=== PATIENT | female | born 1975 | race Caucasian/White ===

== ENCOUNTER 2021-03-12 20:01 | Emergency (ER) | payer MEDICARE, MEDICAID, SELFPAY ==
[2021-03-12 20:15] VITALS: BP 169/97; PULSE 95; RESP 18; TEMP 36.3; O2SAT 98; BMI 67.8
--- NOTE | 2021-03-12 20:48 | ECG_ITS ---
[facility] Test Date: 2021-03-12 Pat Name: Shelli Tadeo Department: Room: Gender: Female Coordinator Of Genetic Services: : 1975 Requested By: Lilia Pantoja Order Number: [id number] Heather MD: Mohinder Flores M.D. Measurements Intervals [place] Rate: 89 P: 48 FL: 151 QRS: 34 QRSD: 89 T: 30 QT: 362 QTc: 442 Interpretive Statements SINUS RHYTHM POSSIBLE LEFT ATRIAL ENLARGEMENT [-0.1mV P WAVE IN V1/V2] No previous ECG available for comparison Electronically Signed On 03-13-2021 10:11:05 CDT by Mohinder Flores M.D. [id number]
--- NOTE | 2021-03-12 20:48 | CTR_ITS ---
PROCEDURE INFORMATION: Exam: CTA Chest With Contrast Exam date and time: 03/12/2021 8:57 PM Age: 45 years old Clinical indication: Bloating; Shortness of breath; Prior surgery; Surgery type: Part neph lt, gb, ; Patient HX: C/O sjorgens flare and abd swelling and SOB; Additional info: Dyspnea TECHNIQUE: Imaging protocol: Computed tomographic angiography of the chest with contrast. 3D rendering (Not supervised by radiologist): MIP and/or 3D reconstructed images were created by the technologist. Radiation optimization: All CT scans at this facility use at least one of these dose optimization techniques: automated exposure control; mA and/or kV adjustment per patient size (includes targeted exams where dose is matched to clinical indication); or iterative reconstruction. Contrast material: OMNI 350; Contrast volume: 160 ml; Contrast route: INTRAVENOUS (IV); COMPARISON: No relevant prior studies available. RADIATION DOSE METRICS: Total DLP (mGy-cm): 3570.07 FINDINGS: Pulmonary arteries: No pulmonary embolus or aortic dissection. Aorta: Unremarkable. No aortic aneurysm. No aortic dissection. Lungs: Unremarkable. No consolidation. No masses. Pleural spaces: Unremarkable. No pneumothorax. No pleural effusion. Heart: Unremarkable. No cardiomegaly. No pericardial effusion. Lymph nodes: Unremarkable. No enlarged lymph nodes. Bones/joints: Unremarkable. No acute fracture. Soft tissues: Unremarkable. IMPRESSION: No pulmonary embolus or aortic dissection. PROCEDURE INFORMATION: Exam: CT Abdomen And Pelvis With Contrast Exam date and time: 03/12/2021 8:57 PM Age: 45 years old Clinical indication: Bloating; Shortness of breath; Prior surgery; Surgery type: Part neph lt, gb, ; Patient HX: C/O sjorgens flare and abd swelling and SOB; Additional info: Dyspnea TECHNIQUE: Imaging protocol: Computed tomography of the abdomen and pelvis with contrast. Radiation optimization: All CT scans at this facility use at least one of these dose optimization techniques: automated exposure control; mA and/or kV adjustment per patient size (includes targeted exams where dose is matched to clinical indication); or iterative reconstruction. Contrast material: OMNI 350; Contrast volume: 160 ml; Contrast route: INTRAVENOUS (IV); COMPARISON: No relevant prior studies available. RADIATION DOSE METRICS: Total DLP (mGy-cm): 3570.07 FINDINGS: Liver: Normal. No mass. Gallbladder and bile ducts: Surgical clips in the gallbladder fossa consistent with cholecystectomy. Pancreas: Normal. No ductal dilation. Spleen: Normal. No splenomegaly. Adrenal glands: Normal. No mass. Kidneys and ureters: Severe right renal atrophy. Stomach and bowel: Periampullary duodenal diverticulum. Appendix: No evidence of appendicitis. Intraperitoneal space: Unremarkable. No free air. No significant fluid collection. Vasculature: Unremarkable. No abdominal aortic aneurysm. Lymph nodes: Unremarkable. No enlarged lymph nodes. Urinary bladder: Unremarkable as visualized. Reproductive: IUD within the uterus. Bones/joints: Unremarkable. No acute fracture. Soft tissues: Possible morbid obesity. CT/CT angio chest w abd pel w con IMPRESSION: No aortic aneurysm or aortic dissection. Radiation Dose CTDIVOL = (mGy): DLP = 3570.07~3570.07 (mGy-cm)
--- NOTE | 2021-03-12 20:52 | W.ED.GENADLT ---
HPI - General Adult General: Chief complaint: General Medical Stated complaint: DIFF BREATHING, RASH ON L ARM, POSS HERNIA PROB Time Seen by Provider: 03/12/21 20:43 Source: patient Mode of arrival: ambulatory Limitations: no limitations History of Present Illness: HPI narrative: 45-year-old female who who has a history of Sjogren's along with a possible mass in her abdomen. States she moved here during Covid last year and has not had any follow-up in over a year. She states that they were working up the mass her abdomen and she is unsure what it was before she had moved. She states she is getting concerned she has been having increasing shortness of breath over the last week. She states that with any activity she becomes short of breath. She denies any pain. 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 Associated symptoms: Reports dyspnea; Deny chest pain, headache(s), nausea, rash or vomiting Review of Systems Const: Denies: fever(s), chills, body aches or change in appetite Eyes: Denies: blurry vision or eye discomfort ENMT: Denies: throat pain or dental pain Card: Denies: chest pain Resp: Reports: dyspnea GI: Denies: abdominal pain, nausea, vomiting or diarrhea : Denies: dysuria Musc: Denies: neck pain or back pain Skin/Breast: Denies: rash Neuro: Denies: headache(s) Psych: Denies: depression Bar/Lymph: Denies: easy bruising All/Imm: Denies: urticaria Physical Exam Const: COMMON NORMALS: no acute distress, patient oriented x3 and healthy appearing HENMT: COMMON NORMALS: normocephalic and atraumatic HEAD & SCALP: normocephalic and atraumatic Eye: COMMON NORMALS: Equal, round and reactive pupils present and EOMs intact bilaterally PUPIL: Yes Equal, round and reactive pupils present Neck/C-Spine: COMMON NORMALS: full ROM and supple Chest: COMMONS NORMALS: normal inspection of the chest and normal palpation of entire chest wall Resp: COMMON NORMALS: normal respiratory effort, No retractions, No use of accessory muscles and clear to auscultation bilaterally AUSCULTATION: clear to auscultation bilaterally Cardio: COMMON NORMALS: regular rate, regular rhythm and No murmurs present (Cardio) RATE: regular rate RHYTHM: regular rhythm GI: COMMON NORMALS: Normal to inspection, nondistended, normoactive bowel sounds present, Soft to palpation, non-tender and no masses PALPATION: Yes Soft to palpation Extremity: COMMON NORMALS: normal to inspection and full ROM Neuro: COMMON NORMALS: patient oriented x3, moves all extremities and no focal motor deficits Psych: COMMON NORMALS: mental status grossly normal, Normal thought process present and cooperative THOUGHT PROCESS: Normal thought process present Skin: COMMON NORMALS: no wounds NARRATIVE SKIN EXAM: rash noted to left arm Course Vital Signs: Vital signs: Vital Signs Temperature 97.3 F L 03/12/21 20:15 Pulse Rate 95 03/12/21 21:16 Respiratory Rate 17 03/12/21 21:16 Blood Pressure 175/104 03/12/21 21:16 Pulse Oximetry 92 03/12/21 21:16 MDM - General Adult MDM Narrative: Medical decision making narrative: Patient presents with a rash on her arm and will start on prednisone. CT of her chest abdomen pelvis is normal no signs of pulmonary embolism. Patient has no signs of acute coronary syndrome or pneumonia causing her dyspnea. She is to follow-up with her PCP and return if worsening. She understands agrees to plan. Lab Data: Labs: Lab Results 03/12/21 03/12/21 03/12/21 Range/Units 21:13 21:13 21:13 WBC 10.4 H (4.0-10.0) 10^3/ uL RBC 4.65 (4.1-5.3) 10^6/u L Hgb 14.1 (11.5-15.3) g/dL Hct 43.7 (37.0-47.0) % MCV 94.0 (81-99) fL MCH 30.3 (28.0-34.0) pg MCHC 32.3 (30.0-36.0) g/dL RDW 13.5 (12.1-15.1) % Plt Count 255 (130-400) 10^3/c mm MPV 11.8 H (7.4-10.4) fL Neut % (Auto) 68.6 % Lymph % (Auto) 23.5 % [place] % (Auto) 5.5 % Eos % (Auto) 1.8 % Baso % (Auto) 0.4 % Neut # (Auto) 7.13 (1.8-7.7) 10^3/u L Lymph # (Auto) 2.4 (0.8-4.8) 10^3/u L [place] # (Auto) 0.6 (0.2-0.9) 10^3/u L Eos # (Auto) 0.2 (0.0-0.8) 10^3/u L Baso # (Auto) 0.0 (0.0-0.1) 10^3/u L Nucleated RBC % (a uto) 0 % Nucleated RBCs # 0.0 /100WBC Sodium 140 (136-145) mmol/L Potassium 4.2 (3.5-5.1) mmol/L Chloride 105 (98-107) mmol/L Carbon Dioxide 24 (22-29) mmol/L Anion Gap 15.2 (5-19) BUN 12 (6-20) mg/dL Creatinine 0.8 (0.5-0.9) mg/dL GFR Calculation 77.9 L (90-130) mL/min Glucose 97 (65-115) mg/dL Calculated Osmolal ity 290 (285-295) mOsm/k g Calcium 8.8 (8.5-10.5) mg/dL Total Bilirubin 0.2 (0.15-1.2) mg/dL AST 13 (0-32) U/L ALT 26 (0-33) U/L Alkaline Phosphata se 97 (35-105) IU/L Troponin T Baselin e 6 (0-10) ng/L Total Protein 6.4 L (6.6-8.7) g/dL Albumin 4.4 (3.5-5.2) g/dL Globulin 2.0 (1.3-4.6) g/dL Imaging Data^: CT Chest: Attestation: I personally reviewed and interpreted this imaging study as follows: Radiologist's impression: [address] [address] [address] Scan Report Signed Patient: Shelli Tadeo Unit #: [id number] : 1975 Age/Sex: 45 / F ADM Date: 03/12/21 Loc: ER Room/Bed: Attending Dr: Ordering Provider/Ordering MD: Lilia Pantoja MD Date of Service: 03/12/21 Procedure(s): CT angio chest w abd pel w con Accession Number(s): [id number] Report Number: [id number] PROCEDURE INFORMATION: Exam: CTA Chest With Contrast Exam date and time: 03/12/2021 8:57 PM Age: 45 years old Clinical indication: Bloating; Shortness of breath; Prior surgery; Surgery type: Part neph lt, gb, ; Patient HX: C/O sjorgens flare and abd swelling and SOB; Additional info: Dyspnea TECHNIQUE: Imaging protocol: Computed tomographic angiography of the chest with contrast. 3D rendering (Not supervised by radiologist): MIP and/or 3D reconstructed images were created by the technologist. Radiation optimization: All CT scans at this facility use at least one of these dose optimization techniques: automated exposure control; mA and/or kV adjustment per patient size (includes targeted exams where dose is matched to clinical indication); or iterative reconstruction. Contrast material: OMNI 350; Contrast volume: 160 ml; Contrast route: INTRAVENOUS (IV); COMPARISON: No relevant prior studies available. RADIATION DOSE METRICS: Total DLP (mGy-cm): 3570.07 FINDINGS: Pulmonary arteries: No pulmonary embolus or aortic dissection. Aorta: Unremarkable. No aortic aneurysm. No aortic dissection. Lungs: Unremarkable. No consolidation. No masses. Pleural spaces: Unremarkable. No pneumothorax. No pleural effusion. Heart: Unremarkable. No cardiomegaly. No pericardial effusion. Lymph nodes: Unremarkable. No enlarged lymph nodes. Bones/joints: Unremarkable. No acute fracture. Soft tissues: Unremarkable. IMPRESSION: No pulmonary embolus or aortic dissection. PROCEDURE INFORMATION: Exam: CT Abdomen And Pelvis With Contrast Exam date and time: 03/12/2021 8:57 PM Age: 45 years old Clinical indication: Bloating; Shortness of breath; Prior surgery; Surgery type: Part neph lt, gb, ; Patient HX: C/O sjorgens flare and abd swelling and SOB; Additional info: Dyspnea TECHNIQUE: Imaging protocol: Computed tomography of the abdomen and pelvis with contrast. Radiation optimization: All CT scans at this facility use at least one of these dose optimization techniques: automated exposure control; mA and/or kV adjustment per patient size (includes targeted exams where dose is matched to clinical indication); or iterative reconstruction. Contrast material: OMNI 350; Contrast volume: 160 ml; Contrast route: INTRAVENOUS (IV); COMPARISON: No relevant prior studies available. RADIATION DOSE METRICS: Total DLP (mGy-cm): 3570.07 FINDINGS: Liver: Normal. No mass. Gallbladder and bile ducts: Surgical clips in the gallbladder fossa consistent with cholecystectomy. Pancreas: Normal. No ductal dilation. Spleen: Normal. No splenomegaly. Adrenal glands: Normal. No mass. Kidneys and ureters: Severe right renal atrophy. Stomach and bowel: Periampullary duodenal diverticulum. Appendix: No evidence of appendicitis. Intraperitoneal space: Unremarkable. No free air. No significant fluid collection. Vasculature: Unremarkable. No abdominal aortic aneurysm. Lymph nodes: Unremarkable. No enlarged lymph nodes. Urinary bladder: Unremarkable as visualized. Reproductive: IUD within the uterus. Bones/joints: Unremarkable. No acute fracture. Soft tissues: Possible morbid obesity. CT/CT angio chest w abd pel w con IMPRESSION: No aortic aneurysm or aortic dissection. Radiation Dose CTDIVOL = (mGy): DLP = 3570.07 3570.07 (mGy-cm) EKG Data^: EKG 1: Attestation: I personally reviewed and interpreted this EKG as follows: EKG interpretation date: 03/12/21 EKG interpretation time: 20:57 Interpretation: nsr hr [address] or twave abnormalities qrs 89 qtc 409 Computer generated interpretation: Chest/Abdomen/Pelvis CT 03/12/21 20:48 IMPRESSION: No aortic aneurysm or aortic dissection. Radiation Dose CTDIVOL = (mGy): DLP = 3570.07~3570.07 (mGy-cm) Discharge Plan Discharge Patient Disposition: Home Clinical Impression: Rash, Dyspnea Condition: Stable Prescriptions: New prednisone 50 mg tablet 50 mg PO DAILY Qty: 5 RF: 0 No Action Tylenol 325 mg Tablet 325 - 650 mg PO Q4H PRN (Reason: Pain) RF: 0 hydroxyzine HCl 25 mg Tablet 25 mg PO BID PRN (Reason: Anxiety) RF: 0 Fish Oil 1 tab PO DAILY RF: 0 elderberry fruit-honey 1 tab PO DAILY RF: 0 naproxen 1 - 2 tab PO Q4H PRN (Reason: Pain) RF: 0 Discharge Orders: Discharge ED (Routine); Ordered 03/12/21 Ordered By: Lilia Pantoja Discharge Diet: Advance as tolerated Discharge Activity: Resume usual activity Patient Instructions: Acute Rash (ED), Dyspnea (ED) Coding Level of Care Code ED Sonar Watchstander for Vernell Fwd Exam Comprehensive
[2021-03-12 21:16] VITALS: BP 175/104; PULSE 95; RESP 17; O2SAT 92
[2021-03-12 21:18] LABS: Basophils % 0.4 %; Eosinophils # 0.2 10^3/uL (0.0-0.8); Eosinophils % 1.8 %; Hematocrit 43.7 % (37.0-47.0); Hemoglobin 14.1 g/dL (11.5-15.3); Lymphocytes # 2.4 10^3/uL (0.8-4.8); Lymphocytes % 23.5 %; Mean Corpuscular HGB Conc 32.3 g/dL (30.0-36.0); Mean Corpuscular Hemoglobin 30.3 pg (28.0-34.0); Mean Platelet Volume 11.8 fL (7.4-10.4); Monocytes # 0.6 10^3/uL (0.2-0.9); Monocytes % 5.5 %; Neutrophils # 7.13 10^3/uL (1.8-7.7); Neutrophils % 68.6 %; Nucleated Red Blood Cells % 0 %; Platelet Count 255 10^3/cmm (130-400); Red Blood Count 4.65 10^6/uL (4.1-5.3); Red Cell Distribution Width 13.5 % (12.1-15.1); White Blood Count 10.4 10^3/uL (4.0-10.0)
[2021-03-12] MEDS: iohexol 350 mg/mL 100 mL Btl IV ×2 (21:21→21:29)
[2021-03-12 21:35] LABS: Troponin(5th) Baseline 6 ng/L (0-10)
[2021-03-12 21:36] LABS: Alanine Aminotransferase 26 U/L (0-33); Albumin Level 4.4 g/dL (3.5-5.2); Alkaline Phosphatase 97 IU/L (35-105); Anion Gap 15.2 (5-19); Aspartate Amino Transferase 13 U/L (0-32); Blood Urea Nitrogen 12 mg/dL (6-20); Calcium 8.8 mg/dL (8.5-10.5); Carbon Dioxide 24 mmol/L (22-29); Chloride 105 mmol/L (98-107); Glomerular Filtration Rate 77.9 mL/min (90-130); Glucose 97 mg/dL (65-115); Osmolality Calculated 290 mOsm/kg (285-295); Potassium 4.2 mmol/L (3.5-5.1); Sodium 140 mmol/L (136-145); Total Bilirubin 0.2 mg/dL (0.15-1.2); Total Protein 6.4 g/dL (6.6-8.7)
[2021-03-12 22:55] VITALS: BP 153/110; PULSE 92; RESP 16; TEMP 36.6; O2SAT 97
== END 2021-03-12 22:55 | disposition home or self-care (01) ==
PROVIDERS: Emergency Provider Emergency Medicine
DX: R21 Rash and other nonspecific skin eruption (principal); R06.00 Dyspnea, unspecified
CPT/HCPCS: 71275; 74177; 80053; 84484; 85025; 93005; 96374; 99284; J2930; Q9967

== ENCOUNTER 2021-04-28 09:15 | Outpatient (CLI) | payer MEDICARE, MEDICAID, SELFPAY ==
--- NOTE | 2021-04-28 09:24 | XRR_ITS ---
PROCEDURE INFORMATION: Exam: XR Lumbosacral Spine Exam date and time: 04/28/2021 9:24 AM Age: 45 years old Clinical indication: Low back pain; Additional info: Low back pain/peripheral neuropathy TECHNIQUE: Imaging protocol: XR of the lumbosacral spine. Views: 4 or 5 views. COMPARISON: CT angio chest w abd pel w con 03/12/2021 9:20 PM FINDINGS: Bones/joints: The vertebral body heights are preserved. Normal alignment. Mild facet arthropathy at the lower lumbar spine. Mild disc space narrowing at L5-S1, the rest of the intervertebral disc heights are maintained. Soft tissues: Surgical clips noted within the abdomen. XR/XR lumbar spine min 4V 67695 IMPRESSION: 1. No acute osseous findings of the lumbar spine. 2. Mild degenerative changes of the lower lumbar spine as described in the body of the report.
--- NOTE | 2021-04-28 09:24 | XRR_ITS ---
PROCEDURE INFORMATION: Exam: XR Right Knee Exam date and time: 04/28/2021 9:24 AM Age: 45 years old Clinical indication: Pain; Knee; Right; Additional info: Pain in R knee TECHNIQUE: Imaging protocol: XR Right knee. Views: 1 or 2 views. COMPARISON: No relevant prior studies available. FINDINGS: Bones/joints: Mild tricompartmental joint space narrowing with marginal osteophyte formation. Negative for fracture. Soft tissues: Normal. 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
== END 2021-04-28 09:16 ==
PROVIDERS: PCP Nurse Practitioner Family; Visit Provider Nurse Practitioner Family
DX: M48.062 Spinal stenosis, lumbar region with neurogenic claudication (principal); M54.16 Radiculopathy, lumbar region; M54.9 Dorsalgia, unspecified; M25.561 Pain in right knee; M25.562 Pain in left knee; F17.210 Nicotine dependence, cigarettes, uncomplicated
CPT/HCPCS: 72110; 73560; 99204

== ENCOUNTER 2021-05-22 15:10 | Outpatient (CLI) | payer MEDICARE, MEDICAID, SELFPAY ==
--- NOTE | 2021-05-22 15:30 | CT_ITS ---
WS: [id number] CT LUMBAR SPINE, noncontrast. HISTORY: M54.16 - Radiculopathy, lumbar region TECHNIQUE: Contiguous 2.5 mm axial imaging are performed. Sagittal and coronal reformats are submitte d and reviewed. All CT scans at [facility] use at least one of these dose optimization te chniques: automated exposure control; mA and/or kV adjustment per patient size (includes targeted exa ms where dose is matched to clinical indication); or iterative reconstruction. IV contrast: None DLP: 2406.92 mGy.cm COMPARISON: None available. Posterior lumbar alignment is normal. No fractures. Vacuum disc phenomenon at L5-S1. Very minimal evangelist rowing of the L5-S1 disc. No pars defects. L1-2: Normal. L2-3: Normal. L3-4: Very slight annular disc bulging. Tiny LEFT foraminal disc protrusion without contact on the ne rve root. L4-5: Mild widening of the facet joints bilaterally with air in the facet joints. There is very sligh t annular disc bulging and ligamentum flavum hypertrophy. Mild narrowing of the central canal and for amen. There is slight increased amount of epidural fat. L5-S1: Mild widening of the facet joints with air in the facet joints. Mild RIGHT and moderate LEFT f oraminal stenosis. Status post RIGHT nephrectomy. Degenerative air in the SI joints bilaterally. Very slight increased sclerosis along the RIGHT sacral side of the RIGHT SI joint. CT/CT lumbar spine wo con* [id number] IMPRESSION: 1. Very mild central and bilateral foraminal stenosis at L4-5. In part due to mild disc disease, facet disease and increased epidural fat. 2. Moderate LEFT and mild RIGHT foraminal stenosis at L5-S1. 3. Tiny LEFT foraminal disc protrusion at L3-4 without contact on the nerve ro ot. 4. Mild widening with increased degenerative air in the facet joints of L4-5 a nd L5-S1, bilateral. 5. Bilateral SI joint degeneration. 6. Prior RIGHT nephrectomy.
== END 2021-05-22 15:11 | disposition home or self-care (01) ==
LOC: RAD 15:15
PROVIDERS: PCP Nurse Practitioner Family; Visit Provider Anesthesiology Pain Medicine
DX: M54.16 Radiculopathy, lumbar region (principal); M48.062 Spinal stenosis, lumbar region with neurogenic claudication; Z90.5 Acquired absence of kidney; M51.26 Other intervertebral disc displacement, lumbar region; M48.07 Spinal stenosis, lumbosacral region; M48.061 Spinal stenosis, lumbar region without neurogenic claudication
CPT/HCPCS: 72131

== ENCOUNTER → 2021-06-02 09:51 | Outpatient (BNVA) | payer MEDICARE, MEDICAID, SELFPAY | PROVIDERS: PCP Nurse Practitioner Family; Visit Provider Anesthesiology Pain Medicine | DX: M54.16 Radiculopathy, lumbar region (principal); M79.604 Pain in right leg; M79.605 Pain in left leg; M47.816 Spondylosis without myelopathy or radiculopathy, lumbar region; M48.07 Spinal stenosis, lumbosacral region; M19.90 Unspecified osteoarthritis, unspecified site; Z79.899 Other long term (current) drug therapy; M79.7 Fibromyalgia; Z11.59 Encounter for screening for other viral diseases; Z11.1 Encounter for screening for respiratory tuberculosis; E66.01 Morbid (severe) obesity due to excess calories; Z68.45 Body mass index [BMI] 70 or greater, adult | CPT/HCPCS: 99204; 99214 ==

== ENCOUNTER 2021-06-10 12:00 | Outpatient (CLI) | payer MEDICARE, MEDICAID, SELFPAY | END 2021-06-10 12:01 | disposition home or self-care (01) | LOC: SLEEP 06-11 09:34 | PROVIDERS: PCP Nurse Practitioner Family; Visit Provider Nurse Practitioner Family | DX: G47.10 Hypersomnia, unspecified (principal) | CPT/HCPCS: G0399 ==

== ENCOUNTER → 2021-06-16 14:30 | Outpatient (BNVA) | payer MEDICARE, MEDICAID, SELFPAY | PROVIDERS: PCP Nurse Practitioner Family; Visit Provider Anesthesiology Pain Medicine | DX: M47.816 Spondylosis without myelopathy or radiculopathy, lumbar region (principal); F17.210 Nicotine dependence, cigarettes, uncomplicated | CPT/HCPCS: 64493; 64494; J1030; J3490 ==

== ENCOUNTER → 2021-07-01 09:50 | Outpatient (BNVA) | payer MEDICARE, MEDICAID, SELFPAY | PROVIDERS: PCP Nurse Practitioner Family; Visit Provider Anesthesiology Pain Medicine | DX: M54.16 Radiculopathy, lumbar region (principal); F17.210 Nicotine dependence, cigarettes, uncomplicated | CPT/HCPCS: 99214 ==

== ENCOUNTER → 2021-07-14 13:53 | Outpatient (BNVA) | payer MEDICARE, MEDICAID, SELFPAY | PROVIDERS: PCP Nurse Practitioner Family; Visit Provider Internal Medicine Rheumatology | DX: M19.90 Unspecified osteoarthritis, unspecified site (principal); Z79.899 Other long term (current) drug therapy; M79.7 Fibromyalgia; M35.00 Sjogren syndrome, unspecified; E66.01 Morbid (severe) obesity due to excess calories; Z68.45 Body mass index [BMI] 70 or greater, adult; Z11.1 Encounter for screening for respiratory tuberculosis; Z11.59 Encounter for screening for other viral diseases | CPT/HCPCS: 36415; 73130; 73630; 80076; 81001; 82306; 82565; 85025; 86140; 86160; 86162; 86200; 86235; 86255; 86376; 86431; 86480; 86704; 86803; 87340; 99214 ==

== ENCOUNTER 2021-07-14 15:49 | Outpatient (CLI) | payer MEDICARE, MEDICAID, SELFPAY ==
--- NOTE | 2021-07-14 15:57 | XR_ITS ---
WS: [id number] Exam: XR hand LT min 3V* [id number] Date/Time of Exam: 07/14/2021 3:58 PM Reason For Exam: M79.7 - Fibromyalgia No acute fracture or dislocation. Mild degenerative changes in the IP joints. No soft tissue foreign bodies are seen. Positive radial variance. XR/XR hand LT min 3V* [id number] IMPRESSION: 1. Minimal degenerative changes in the IP joints. 2. No fracture.
--- NOTE | 2021-07-14 15:57 | XR_ITS ---
WS: [id number] Exam: XR foot LT min 3V* [id number] Date/Time of Exam: 07/14/2021 3:58 PM Reason For Exam: M79.7 - Fibromyalgia Findings: The foot was examined in multiple views and reveals no fractures or displacements of bone. No bony a nomalies are noted. The bony elements are in adequate alignment. The joint spaces are smooth and eq uidistant. XR/XR foot LT min 3V* [id number] IMPRESSION: Negative left foot.
--- NOTE | 2021-07-14 15:57 | XR_ITS ---
WS: [id number] Exam: XR hand RT min 3V* [id number] Date/Time of Exam: 07/14/2021 3:58 PM Reason For Exam: M19.90 - Unspecified osteoarthritis, unspecified site No fracture or dislocation. Mild degenerative changes in the IP joints. No soft tissue foreign body s een. Positive radial variance. XR/XR hand RT min 3V* [id number] IMPRESSION: 1. Mild DJD involving the IP joints. No fracture noted.
--- NOTE | 2021-07-14 15:57 | XR_ITS ---
WS: [id number] Exam: XR foot RT min 3V* [id number] Date/Time of Exam: 07/14/2021 3:58 PM Reason For Exam: M19.90 - Unspecified osteoarthritis, unspecified site Findings: The foot was examined in multiple views and reveals no fractures or displacements of bone. No bony a nomalies are noted. The bony elements are in adequate alignment. The joint spaces are smooth and eq uidistant. XR/XR foot RT min 3V* [id number] IMPRESSION: Negative right foot.
[2021-07-14 17:12] LABS: Basophils # 0.1 10^3/uL (0.0-0.1); Basophils % 0.6 %; Eosinophils # 0.2 10^3/uL (0.0-0.8); Eosinophils % 2.2 %; Hematocrit 45.2 % (37.0-47.0); Hemoglobin 14.4 g/dL (11.5-15.3); Lymphocytes # 2.3 10^3/uL (0.8-4.8); Lymphocytes % 25.4 %; Mean Corpuscular HGB Conc 31.9 g/dL (30.0-36.0); Mean Corpuscular Hemoglobin 30.5 pg (28.0-34.0); Mean Corpuscular Volume 95.8 fl (81-99); Mean Platelet Volume 11.6 fL (7.4-10.4); Monocytes # 0.5 10^3/uL (0.2-0.9); Neutrophils # 5.93 10^3/uL (1.8-7.7); Neutrophils % 66.6 %; Nucleated Red Blood Cells % 0 %; Platelet Count 265 10^3/cmm (130-400); Red Blood Count 4.72 10^6/uL (4.1-5.3); White Blood Count 8.9 10^3/uL (4.0-10.0)
[2021-07-14 17:28] LABS: Glucose Urine UA Norm (Normal); Protein Urine 2+ (Negative); Urine Appearance Cloudy (CLEAR); Urine Color Amber (Yellow); pH Urine 7 (5-7)
[2021-07-14 17:29] LABS: Add Urine Culture? Yes; Bacteria Urine 1+ /hpf; Bilirubin Urine 1+ (Negative); Blood Urine 3+ (Negative); Ketones Urine 1+ (Negative); Leukocyte Esterase Urine 1+ (Negative); Nitrate Urine Negative (Negative); RBC Urine 15-25 /hpf (0-2); Squamous Epithelial Cell Urine 0-4 /hpf (0-5); Urobilinogen Urine 4 mg/dL (Negative); WBC Urine 25-40 /hpf (0-5)
[2021-07-14 17:54] LABS: Hepatitis B Core AB, Total Non-Reactive (Nonreactive); Hepatitis B Surface Antigen Non-Reactive (Nonreactive)
[2021-07-14 17:56] LABS: 25 Hydroxy Vitamin D 25 ng/mL (30-100); Alanine Aminotransferase 35 U/L (0-33); Albumin Level 3.9 g/dL (3.5-5.2); Alkaline Phosphatase 87 IU/L (35-105); Aspartate Amino Transferase 17 U/L (0-32); Globulin 2.8 g/dL (1.3-4.6); Glomerular Filtration Rate 77.9 mL/min (90-130); Total Bilirubin 0.2 mg/dL (0.15-1.2); Total Protein 6.7 g/dL (6.6-8.7)
[2021-07-14 18:18] LABS: Hepatitis C Virus Antibody Non-Reactive (Nonreactive)
[2021-07-16 14:07] LABS: Cyclic Citrullinated Peptide <16 UNITS
[2021-07-17 10:32] LABS: CENTROMERE B ANTIBODY <1.0 NEG AI (<1.0 NEG); JO-1 ANTIBODY <1.0 NEG AI (<1.0 NEG); RNP ANTIBODY <1.0 NEG AI (<1.0 NEG); SCL-70 ANTIBODY <1.0 NEG AI (<1.0 NEG); SJOGREN'S ANTIBODY (SS-A) <1.0 NEG AI (<1.0 NEG); SM ANTIBODY <1.0 NEG AI (<1.0 NEG)
[2021-07-17 12:27] LABS: THYROID PEROXIDASE ANTIBODIES 1 IU/mL (<9)
[2021-07-17 14:03] LABS: Quantiferon Mitogen 9.51 IU/mL; Quantiferon Nil 0.01 IU/mL; Quantiferon TB Gold NEGATIVE (NEGATIVE)
[2021-07-17 17:32] LABS: ANA SCREEN, IFA NEGATIVE (NEGATIVE)
[2021-07-18 17:58] LABS: DNA AB (DS) CRITHIDIA,IFA NEGATIVE (NEGATIVE)
== END 2021-07-14 15:50 | disposition home or self-care (01) ==
LOC: RAD 15:55
PROVIDERS: PCP Nurse Practitioner Family; Visit Provider Internal Medicine Rheumatology
DX: M19.90 Unspecified osteoarthritis, unspecified site (principal); M79.7 Fibromyalgia; Z11.59 Encounter for screening for other viral diseases; Z79.899 Other long term (current) drug therapy; Z11.1 Encounter for screening for respiratory tuberculosis
CPT/HCPCS: 36415; 73130; 73630; 80076; 81001; 82306; 82565; 85025; 85651; 86140; 86160; 86162; 86200; 86235; 86255; 86376; 86431; 86480; 86704; 86803; 87340

== ENCOUNTER 2021-08-25 11:27 | Emergency (ER) | payer MEDICARE, MEDICAID, SELFPAY ==
--- NOTE | 2021-08-25 11:35 | XRR_ITS ---
PROCEDURE INFORMATION: Exam: XR Left Hand Exam date and time: 08/25/2021 11:35 AM Age: 45 years old Clinical indication: Injury or trauma; Other: Jigsaw injury; Hand; Left; Injury details: History-- laceration to webbing between 1st and 2nd digits from jigsaw; Additional info: Left hand injury TECHNIQUE: Imaging protocol: XR Left hand. Views: 3 or more views. COMPARISON: CR XR hand LT min 3V* [id number] 07/14/2021 4:12 PM FINDINGS: Bones/joints: No fracture or dislocation. Soft tissues: Diffuse soft tissue swelling and small amount of subcutaneous emphysema between the 1st and 2nd digit noted, consistent with history of laceration. No radiopaque foreign body identified. XR/XR hand LT min 3V* [id number] IMPRESSION: 1. No acute fracture or dislocation. 2. No radiopaque foreign body. Radiation Dose CTDIVOL = (mGy): DLP = (mGy-cm)
[2021-08-25 11:37] VITALS: PULSE 106; RESP 18; TEMP 36.5; O2SAT 97; BMI 70.2
--- NOTE | 2021-08-25 11:57 | ED_ITS ---
HPI - Wound/Laceration General: Chief Complaint: Wound/Laceration Stated Complaint: Injury to Left Hand Time Seen by Provider: 08/25/21 11:56 History of Present Illness: HPI narrative: Patient is a 45-year-old female comes to the ED with injury to left hand. Patient says approximately 30 minutes before arrival she was using a jigsaw and cut her hand. Laceration is on the dorsal aspect of left hand between the webspace of the thumb and index finger. She has some pain and swelling in her hand but has full range of motion in all her fingers and hand. Patient says she is not up-to-date on her tetanus and needs a booster shot today. Associated symptoms: Denies chills, fever(s), nausea or vomiting Review of Systems Const: Denies: fever(s), chills or fatigue Eyes: Denies: change in vision or eye discomfort ENMT: Denies: throat pain, odynophagia, nasal discharge or nasal congestion Card: Denies: chest pain, palpitations, edema, swelling of feet/ankles, dyspnea on exertion or orthopnea Resp: Denies: dyspnea, productive cough or non-productive cough GI: Denies: abdominal pain, nausea, vomiting, diarrhea, constipation or hematochezia : Denies: flank pain, dysuria or hematuria Musc: Denies: neck pain, back pain or extremity swelling Skin/Breast: Reports: new lesions (laceration to left hand); Denies: rash Neuro: Denies: headache(s), numbness in extremities or weakness in extremities PFS ED PFSH: Medical History Arthritis DDD (degenerative disc disease) Fibromyalgia High risk medication use Inflammatory arthritis Injury of gallbladder during surgery Joint pain Lupus Morbid obesity Muscle pain Surgical History H/O LEEP History of nephrectomy Previous section Status post tonsillectomy Family History Mother Cancer CAD (coronary artery disease) Other Crohn disease Psoriatic arthritis Denies family history of Rheumatoid arthritis Lupus Social History Alcohol intake: never History of recent travel: No Physical Exam Const: COMMON NORMALS: no acute distress, patient oriented x3 and alert GENERAL APPEARANCE: cooperative and comfortable HENMT: COMMON NORMALS: normocephalic HEAD & SCALP: normocephalic MOUTH: Normal oral and palatal mucosa present THROAT: posterior oropharynx normal and uvula midline Neck/C-Spine: COMMON NORMALS: supple GENERAL: Yes normal visual inspection Resp: COMMON NORMALS: normal respiratory effort, No retractions, No use of accessory muscles and clear to auscultation bilaterally AUSCULTATION: clear to auscultation bilaterally Cardio: COMMON NORMALS: regular rate, regular rhythm, S1 normal heart sound present, S2 normal heart sound present, No gallops present (Cardio), No clicks present (Cardio), No murmurs present (Cardio) and Peripheral pulses 2+ throug hout RATE: regular rate RHYTHM: regular rhythm HEART SOUNDS: S1 normal heart sound present and S2 normal heart sound present PERIPHERAL PULSES: Peripheral pulses 2+ throughout GI: COMMON NORMALS: Normal to inspection, nondistended, normoactive bowel sounds present, Soft to palpation, non-tender and no masses PALPATION: Yes Soft to palpation : COMMON NORMALS: Yes no CVA tenderness BLADDER/KIDNEY EXAM: Yes no CVA tenderness Back/Pelvis: COMMON NORMALS: no CVA tenderness Extremity: NARRATIVE EXTREMITY EXAM: Left Hand- 1.5cm linear laceration that involves subcutaneous fat. no active bleeding. Pt has full ROM of wrist, hand and fingers. NV intact. GENERAL: Yes normal exam except as noted Neuro: COMMON NORMALS: patient oriented x3 and moves all extremities SENSORIUM/ORIENTATION: Yes alert Skin: NARRATIVE SKIN EXAM: Left Hand- 1.5cm linear laceration that involves subcutaneous fat. no active bleeding. Pt has full ROM of wrist, hand and fingers. NV intact. GENERAL SKIN EXAM: dry skin Procedures Laceration Laceration 1: Site: hand (dorsal aspect-webspace inbetween thumb and index finger) Side (If applicable): left Size (cm): 1.5 Description: linear and clean Depth: simple, single layer Local Anesthetic: lidocaine 1% and with epi Amount of anesthesia used (mL): 10 Pre-repair: irrigated extensively (Irrigated extensively with normal saline and cleaned with CHG swab.) Skin layer closed with: nylon Size (cm): 4-0 Number of sutures: 4 Technique: simple, interrupted Course Vital Signs: Vital signs: Vital Signs Temperature 97.7 F 08/25/21 11:37 Pulse Rate 106 H 08/25/21 11:37 Respiratory Rate 18 08/25/21 11:37 Pulse Oximetry 97 08/25/21 11:37 MDM - Wound/Laceration MDM Narrative: Medical decision making narrative: Patient is a 45-year-old female comes to the ED with an injury to left hand. Patient has a 1.5 cm linear laceration. She has full range of motion in hand and wrist and fingers. Neurovascular noted. X-ray of the hand showed no acute fractures or any foreign body seen. Laceration site was irrigated extensively with normal saline and then skin was cleaned with CHG swab. Lidocaine 1% with epi was used as local and 4 sutures were placed to close laceration. Patient was given an updated tetanus shot while in the ED. patient was discharged home with instructions on how to care for laceration. She was sent home with a prescription for antibiotic prophylactic treatment. She was told to have sutures removed in 7 to 10 days. Return to ED precautions given. Patient understood and agreed with plan. Imaging Data^: Xray Ortho: Attestation: I personally reviewed and interpreted this imaging study as follows: Radiologist's impression: [address] [address] XRay Report Signed Patient: Shelli Tadeo Unit #: [id number] : 1975 Age/Sex: 45 / F ADM Date: 08/25/21 Loc: ER Room/Bed: Attending Dr: Ordering Provider/Ordering MD: Darius Mckee Date of Service: 08/25/21 Procedure(s): XR hand LT min 3V* [id number] Accession Number(s): [id number] Report Number: [id number] PROCEDURE INFORMATION: Exam: XR Left Hand Exam date and time: 08/25/2021 11:35 AM Age: 45 years old Clinical indication: Injury or trauma; Other: Jigsaw injury; Hand; Left; Injury details: History-- laceration to webbing between 1st and 2nd digits from jigsaw; Additional info: Left hand injury TECHNIQUE: Imaging protocol: XR Left hand. Views: 3 or more views. COMPARISON: CR XR hand LT min 3V* [id number] 07/14/2021 4:12 PM FINDINGS: Bones/joints: No fracture or dislocation. Soft tissues: Diffuse soft tissue swelling and small amount of subcutaneous emphysema between the 1st and 2nd digit noted, consistent with history of laceration. No radiopaque foreign body identified. XR/XR hand LT min 3V* [id number] IMPRESSION: 1. No acute fracture or dislocation. 2. No radiopaque foreign body. Radiation Dose CTDIVOL = (mGy): DLP = (mGy-cm) Dictated By: Ajay Horner Signed By: Ajay Horner Signed Date/Time: 08/25/21 1220 DD/ 1135 Discharge Plan Discharge Patient Disposition: Home Clinical Impression: Hand laceration Qualifiers: Encounter type: initial encounter Foreign body presence: without foreign body Laterality: left Qualified Code(s): S61.412A - Laceration without foreign body of left hand, initial encounter Condition: Stable Prescriptions: New cephalexin 500 mg capsule 500 mg PO Q6H 4 Days Qty: 16 RF: 0 No Action pantoprazole 40 mg tablet,delayed release (DR/EC) See Rx Instructions PO DAILY Qty: 90 RF: 1 prednisone 10 mg tablet See Rx Instructions PO DAILY Qty: 60 RF: 3 Savella 12.5 mg (5)-25 mg(8)-50 mg(42) tablets,dose pack See Rx Instructions PO PER PKG DIR Qty: 55 RF: 0 Savella 50 mg tablet 50 mg PO BID Qty: 60 RF: 3 ciprofloxacin HCl [Cipro] 500 mg tablet 500 mg PO DAILY Qty: 5 RF: 0 leflunomide 20 mg tablet 20 mg PO DAILY Qty: 30 RF: 3 Tylenol 325 mg Tablet 325 - 650 mg PO Q4H PRN (Reason: Pain) RF: 0 hydroxyzine HCl 25 mg Tablet 25 mg PO BID PRN (Reason: Anxiety) RF: 0 elderberry fruit-honey 1 tab PO DAILY RF: 0 Discharge Orders: Discharge ED (Routine); Ordered 08/25/21 Ordered By: Darius Mckee Referrals: Sade Rudolph NP [Primary Care Provider] - Discharge Diet: Regular Discharge Activity: Limit activity as instructed Patient Instructions: Laceration (DC) Activity Restrictions/Additional Instructions: Take full course of antibiotics as prescribed. Keep laceration site clean and dry for the next 48 hours. Then after that you can clean and re-bandage daily. Watch for signs of infection such as redness, warmth, increased tenderness and puslike drainage. If you see the signs of infection return to the ED, urgent care or PCP for reevaluation. call your PCP to schedule a follow-up appointment for reevaluation and suture removal in about 7- 10 days. Continue taking all home meds. Follow discharge plans as discussed. You can return to the ED if symptoms worsen. 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
[2021-08-25] MEDS: HYDROcodone-acetaminophen 5-325 mg Tablet 1 TAB PO (12:56)
[2021-08-25] MEDS: tetanus-dipt-pertussis 0.5 mL SDV IM (12:56)
== END 2021-08-25 13:03 | disposition home or self-care (01) ==
PROVIDERS: Emergency Provider Physician Assistant; PCP Nurse Practitioner Family
DX: S61.412A Laceration without foreign body of left hand, initial encounter (principal); X58.XXXA Exposure to other specified factors, initial encounter; Y93.H3 Activity, building and construction
CPT/HCPCS: 12001; 12002; 73130; 90471; 90715; 99283

== ENCOUNTER 2021-09-19 06:00 | Outpatient (RCR) | payer MEDICARE, MEDICAID, SELFPAY | END 2021-09-19 23:00 | disposition home or self-care (01) | LOC: SOT 06:00 | PROVIDERS: PCP Nurse Practitioner Family; Referring Provider Nurse Practitioner Family; Visit Provider Nurse Practitioner Family | DX: R26.89 Other abnormalities of gait and mobility (principal); G89.29 Other chronic pain; M35.00 Sjogren syndrome, unspecified; E66.1 Drug-induced obesity | CPT/HCPCS: 97167; 97530 ==

== ENCOUNTER 2021-12-19 17:13 | Outpatient (CLI) | payer MEDICARE, MEDICAID, SELFPAY ==
[2021-12-19 17:50] LABS: Basophils # 0.1 10^3/uL (0.0-0.1); Basophils % 0.6 %; Eosinophils # 0.2 10^3/uL (0.0-0.8); Eosinophils % 1.6 %; Hematocrit 45.3 % (37.0-47.0); Hemoglobin 14.3 g/dL (11.5-15.3); Lymphocytes # 2.1 10^3/uL (0.8-4.8); Lymphocytes % 19.3 %; Mean Corpuscular HGB Conc 31.6 g/dL (30.0-36.0); Mean Corpuscular Hemoglobin 29.5 pg (28.0-34.0); Mean Corpuscular Volume 93.6 fl (81-99); Mean Platelet Volume 12.4 fL (7.4-10.4); Monocytes # 0.5 10^3/uL (0.2-0.9); Neutrophils # 7.88 10^3/uL (1.8-7.7); Neutrophils % 73.1 %; Nucleated Red Blood Cells % 0 %; Platelet Count 229 10^3/cmm (130-400); Red Blood Count 4.84 10^6/uL (4.1-5.3); Red Cell Distribution Width 14.1 % (12.1-15.1); White Blood Count 10.8 10^3/uL (4.0-10.0)
[2021-12-19 18:08] LABS: Erythrocyte Sedimentation Rate 25 mm/hr (0-15)
[2021-12-19 18:23] LABS: Alanine Aminotransferase 76 U/L (0-33); Albumin Level 3.9 g/dL (3.5-5.2); Alkaline Phosphatase 159 IU/L (35-105); Aspartate Amino Transferase 42 U/L (0-32); C Reactive Protein 26.7 mg/L (0.0-4.9); Globulin 3.3 g/dL (1.3-4.6); Glomerular Filtration Rate 90.5 mL/min (90-130); Total Bilirubin 0.2 mg/dL (0.15-1.2); Total Protein 7.2 g/dL (6.6-8.7)
== END 2021-12-19 17:14 | disposition home or self-care (01) ==
LOC: LAB 17:17
PROVIDERS: PCP Nurse Practitioner Family; Visit Provider Internal Medicine Rheumatology
DX: M19.90 Unspecified osteoarthritis, unspecified site (principal); Z79.899 Other long term (current) drug therapy
CPT/HCPCS: 80076; 82565; 85025; 85651; 86140

== ENCOUNTER → 2021-12-30 10:11 | Outpatient (BNVA) | payer MEDICARE, MEDICAID, SELFPAY | PROVIDERS: PCP Nurse Practitioner Family; Visit Provider Internal Medicine Rheumatology | DX: M19.90 Unspecified osteoarthritis, unspecified site (principal); M35.00 Sjogren syndrome, unspecified; R74.8 Abnormal levels of other serum enzymes; Z79.899 Other long term (current) drug therapy; M79.7 Fibromyalgia; E66.01 Morbid (severe) obesity due to excess calories; Z68.45 Body mass index [BMI] 70 or greater, adult; F17.210 Nicotine dependence, cigarettes, uncomplicated | CPT/HCPCS: 99214 ==

== ENCOUNTER → 2022-01-15 13:48 | Outpatient (BNVA) | payer MEDICARE, SELFPAY | PROVIDERS: PCP Nurse Practitioner Family; Visit Provider Internal Medicine Cardiovascular Disease | DX: R00.2 Palpitations (principal); R06.02 Shortness of breath; R00.0 Tachycardia, unspecified | CPT/HCPCS: 93270 ==

== ENCOUNTER 2022-03-03 10:26 | Outpatient (CLI) | payer OTHER, MEDICARE, MEDICAID, SELFPAY ==
--- NOTE | 2022-03-03 | US_ITS ---
WS: [id number] RIGHT UPPER QUADRANT ULTRASOUND HISTORY: R74.8 - Abnormal levels of other serum enzymes COMPARISON: None available. Liver: 22.3 cm in length. Markedly enlarged liver with low attenuation throughout. The entire liver i s poorly visualized due to attenuation. No mass identified. No bile duct dilatation. Portal Vein: Normal hepatopetal flow with monophasic waveform. Gallbladder: Prior cholecystectomy. CBD: Not visualized with certainty. Pancreas: Obscured by bowel gas. Right kidney: Not well visualized in order to accurately measure. Aorta and IVC: Unremarkable abdominal aorta and IVC. No ascites. US/US liver [id number] IMPRESSION: 1. Very limited evaluation of the RIGHT upper quadrant due to body habitus. 2. Prior cholecystectomy. 3. Marked hepatic steatosis and hepatomegaly.
[2022-03-03 11:21] LABS: Alanine Aminotransferase 46 U/L (0-33); Albumin Level 4.2 g/dL (3.5-5.2); Alkaline Phosphatase 107 IU/L (35-105); Aspartate Amino Transferase 20 U/L (0-32); Globulin 3.3 g/dL (1.3-4.6); Total Bilirubin 0.2 mg/dL (0.15-1.2); Total Protein 7.5 g/dL (6.6-8.7)
== END 2022-03-03 10:27 | disposition home or self-care (01) ==
PROVIDERS: PCP Nurse Practitioner Family; Visit Provider Internal Medicine Rheumatology
DX: R74.8 Abnormal levels of other serum enzymes (principal); K76.0 Fatty (change of) liver, not elsewhere classified; R16.0 Hepatomegaly, not elsewhere classified; Z79.899 Other long term (current) drug therapy; Z90.49 Acquired absence of other specified parts of digestive tract
CPT/HCPCS: 76705; 80076

== ENCOUNTER → 2022-04-08 13:21 | Outpatient (BNVA) | payer MEDICARE, SELFPAY | PROVIDERS: PCP Nurse Practitioner Family; Visit Provider Internal Medicine Cardiovascular Disease | DX: R00.1 Bradycardia, unspecified (principal); R07.9 Chest pain, unspecified; M35.00 Sjogren syndrome, unspecified; E66.01 Morbid (severe) obesity due to excess calories; Z68.45 Body mass index [BMI] 70 or greater, adult; M79.7 Fibromyalgia; M54.16 Radiculopathy, lumbar region | CPT/HCPCS: 99204 ==

== ENCOUNTER → 2022-05-04 09:21 | Outpatient (BNVA) | payer MEDICARE, SELFPAY | PROVIDERS: PCP Nurse Practitioner Family; Visit Provider Internal Medicine Rheumatology | DX: M19.90 Unspecified osteoarthritis, unspecified site (principal); M35.00 Sjogren syndrome, unspecified; Z79.899 Other long term (current) drug therapy; M79.7 Fibromyalgia; E66.01 Morbid (severe) obesity due to excess calories; Z68.45 Body mass index [BMI] 70 or greater, adult | CPT/HCPCS: 99214 ==

== ENCOUNTER 2022-05-06 18:43 | Emergency (ER) | payer MEDICARE, SELFPAY ==
[2022-05-06 19:04] VITALS: PULSE 94; RESP 18; TEMP 36.4; O2SAT 98; BMI 71.0
--- NOTE | 2022-05-06 20:58 | W.ED.EXTPRO ---
HPI - Extremity Problem General: Chief complaint: Extremity Problem,Nontraumatic Stated complaint: left leg swelling and pain Time Seen by Provider: 05/06/22 20:58 History of Present Illness: 46-year-old female comes in today for complaints of calf pain to the left lower extremity. Patient reports 6 weeks ago she was on a road trip but since that she has had discomfort to her left calf. Patient also reports some increased swelling to the foot. Patient denies any chest pain or shortness of breath. Associated symptoms: Deny chest pain or fever(s) Review of Systems Const: Denies: fever(s) Card: Denies: chest pain Resp: Denies: dyspnea Musc: Reports: extremity pain and extremity swelling PFS ED PFSH: Medical History Arthritis DDD (degenerative disc disease) Fibromyalgia High risk medication use Inflammatory arthritis Injury of gallbladder during surgery Joint pain Lupus Morbid obesity Muscle pain Primary Sjogren's syndrome Surgical History H/O LEEP History of nephrectomy Previous section S/P cholecystectomy Status post tonsillectomy Family History Mother Cancer CAD (coronary artery disease) Cardiomyopathy Grandmother Cardiomyopathy Diabetes Other Crohn disease Psoriatic arthritis Social History Smoking and tobacco status: never smoked Alcohol intake: never History of recent travel: No Physical Exam Const: COMMON NORMALS: alert Neck/C-Spine: COMMON NORMALS: full ROM Resp: COMMON NORMALS: normal respiratory effort and clear to auscultation bilaterally AUSCULTATION: clear to auscultation bilaterally Cardio: COMMON NORMALS: regular rate RATE: regular rate Extremity: LEFT LOWER EXTREMITY: Yes lower leg (Mild swelling, positive Homans' sign) Left lower leg: Yes inspection, Yes palpation and Yes neurovascular exam Neuro: SENSORIUM/ORIENTATION: Yes alert Skin: COMMON NORMALS: no rashes or lesions noted GENERAL SKIN EXAM: no rashes or lesions noted Course Vital Signs: Vital signs: Vital Signs Temperature 97.5 F L 05/06/22 19:04 Pulse Rate 77 05/06/22 21:01 Respiratory Rate 18 05/06/22 21:01 Blood Pressure 151/115 05/06/22 21:48 Pulse Oximetry 96 05/06/22 21:01 MDM - Extremity (Nontraumatic) Medical Decision Making 46-year-old female comes in today with complaints of left lower extremity pain. Patient was concerned she might of developed a blood clot. Patient went on vacation 6 weeks ago and had been in long car ride. Since then patient has had some pain in her left lower extremity but has recently noticed more swelling to the leg than what is normal. On exam patient has pulses in bilateral lower extremities. Patient does have pedal edema bilaterally. Tenderness is noted in the calf. And posterior knee. Differential diagnosis includes but not limited to Davidson's cyst, DVT, osteoarthritis, knee strain. X-ray was unremarkable except for some DJD, venous duplex noted no DVT. Patient was given a dose of hydrocodone with improvement in pain. We will continue patient with some hydrocodone for severe pain. Further discussion with patient realized that she had slipped and strained her knee about 1 week ago and believes that the pain may be secondary to that slip injury. I did report that it probably most likely is due to a strain in her knee and calf. Patient should follow-up with primary care or return to the ER for worsening symptoms or new concerns. Lab Data Radiology Impressions Venous Duplex 05/06/22 20:59 IMPRESSION: No evidence of deep vein thrombosis. Knee X-Ray 05/06/22 21:05 IMPRESSION: No acute findings. Mild DJD centered in the medial compartment. Discharge Plan Discharge Patient Disposition: Home Clinical Impression: Knee pain, left Qualifiers: Chronicity: unspecified Qualified Code(s): M25.562 - Pain in left knee Condition: Stable Prescriptions: New hydrocodone-acetaminophen 5-325 mg tablet 1 tab PO Q6H PRN (Reason: pain) Qty: 14 0RF No Action pantoprazole 40 mg tablet,delayed release (DR/EC) See Rx Instructions PO DAILY Qty: 90 1RF Rx Instructions: take in AM 30 minutes before meal PO daily; prednisone 10 mg tablet 10 mg PO DAILY Qty: 90 1RF prednisone 20 mg tablet See Rx Instructions PO .COMPLEX PRN (Reason: joint pain flare) Qty: 30 1RF Rx Instructions: take 1 or 2 tab daily for 5-7 days as needed for arthritis flare PO PRN; methotrexate sodium 2.5 mg tablet See Rx Instructions PO .Q7days Qty: 30 3RF Rx Instructions: take 6 tabs on same day once a week/Wednesday PO .Q7days; folic acid 1 mg tablet 1 mg PO DAILY Qty: 90 3RF tumeric and luis enrique PO 0RF pilocarpine HCl 5 mg tablet 5 mg PO TID Qty: 90 3RF gabapentin 100 mg capsule 100 mg PO TID PRN0RF fexofenadine [Felicitas Allergy] 180 mg tablet 180 mg PO DAILY 0RF ondansetron HCl 8 mg tablet 8 mg PO Q8H PRN (Reason: nausea and vomiting) Qty: 30 1RF elderberry fruit-honey 1 tab PO DAILY PRN0RF hydroxyzine HCl 25 mg tablet 25 mg PO TID PRN (Reason: Anxiety) 0RF Discharge Orders: Discharge ED (Routine); Ordered 05/06/22 Ordered By: Arley Lewis Referrals: Sade Rudolph NP [Primary Care Provider] - Discharge Diet: Usual diet Discharge Activity: Increase activity as tolerated Patient Instructions: Knee Pain (ED), Opioid Safety Activity Restrictions/Additional Instructions: Maintain activity as tolerated. Use a walker in order to return to baseline mobility. Using the extremity will help prevent your arthritis from stiffening more causing delay in healing of strained ligaments and tendons. Use acetaminophen and ibuprofen to control pain. Use hydrocodone for severe pain. Use ice and heat for further pain relief. Follow-up with primary care for further instruction and recommendations. 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
--- NOTE | 2022-05-06 20:59 | USR_ITS ---
PROCEDURE INFORMATION: Exam: US Duplex Left Lower Extremity Veins, Limited Exam date and time: 05/06/2022 9:12 PM Age: 46 years old Clinical indication: Leg, lower; Left; Patient HX: Pain and swelling x 6 weeks. Morbid obesity. 5' 6 440 lbs; Additional info: Pain and swelling, R/O dvt TECHNIQUE: Imaging protocol: Real-time Duplex ultrasound of the Left Lower Extremity with 2-D brewer scale, color Doppler flow and spectral waveform analysis with image documentation. Limited exam focused on the left lower extremity veins. COMPARISON: CT angio chest w abd pel w con 03/12/2021 9:20 PM FINDINGS: Left deep veins: Unremarkable. The common femoral, femoral, proximal profunda femoral and popliteal veins are patent without thrombus. Normal Doppler waveforms. Normal compressibility and/or augmentation response. Left superficial veins: Unremarkable. Saphenofemoral junction is patent without thrombus. Soft tissues: Unremarkable. US/CV venous duplex [facility] [id number] IMPRESSION: No evidence of deep vein thrombosis.
[2022-05-06 21:01] VITALS: BP 197/111; PULSE 77; RESP 18; O2SAT 96
--- NOTE | 2022-05-06 21:05 | XRR_ITS ---
PROCEDURE INFORMATION: Exam: XR Left Knee Exam date and time: 05/06/2022 9:29 PM Age: 46 years old Clinical indication: Pain; Knee; Left TECHNIQUE: Imaging protocol: Radiologic exam of the Left knee. Views: 3 views. COMPARISON: [place] [id number] 05/06/2022 9:12 PM FINDINGS: Bones/joints: Osseous structures are intact. Negative for fracture. Mild joint space narrowing and marginal osteophyte formation centered in the medial compartment. Soft tissues: Normal. XR/XR knee LT 3V* [id number] IMPRESSION: No acute findings. Mild DJD centered in the medial compartment.
[2022-05-06] MEDS: HYDROcodone-acetaminophen 7.5-325 mg Tablet 1 TAB PO (21:47)
[2022-05-06 21:48] VITALS: BP 151/115
[2022-05-06 23:25] VITALS: BP 159/102; PULSE 65; RESP 18; O2SAT 97
== END 2022-05-06 23:26 | disposition home or self-care (01) ==
PROVIDERS: Emergency Provider Nurse Practitioner Family; PCP Nurse Practitioner Family
DX: M25.562 Pain in left knee (principal)
CPT/HCPCS: 73562; 93971; 99283

== ENCOUNTER 2022-05-07 17:44 | Emergency (ER) | payer MEDICARE, SELFPAY ==
[2022-05-07 19:03] VITALS: BP 154/96; PULSE 90; RESP 17; TEMP 36.8; O2SAT 95; BMI 71.0
--- NOTE | 2022-05-07 22:14 | ED_ITS ---
HPI - Extremity Problem General: Chief complaint: Extremity Injury, Lower Stated complaint: Left leg pain Time Seen by Provider: 05/07/22 22:06 History of Present Illness: 46-year-old female comes in today for complaints of left lower leg pain. Patient states that she was seen last night and was evaluated for knee and calf pain. Patient had ultrasound of the leg which was negative for DVT. Patient also had x-rays of the knee that showed some mild degenerative arthritis. Patient reports today she was stepping down off a curb when she felt something pop in the calf of her left lower leg. Patient appears nontoxic. Patient appears in moderate pain. Associated symptoms: Deny chest pain Review of Systems General: Reports: 10 or more systems reviewed and unremarkable except in HPI and below Card: Denies: chest pain Resp: Denies: dyspnea Musc: Reports: extremity pain PFSH ED PFSH: Medical History Arthritis DDD (degenerative disc disease) Fibromyalgia High risk medication use Inflammatory arthritis Injury of gallbladder during surgery Joint pain Lupus Morbid obesity Muscle pain Primary Sjogren's syndrome Surgical History H/O LEEP History of nephrectomy Previous section S/P cholecystectomy Status post tonsillectomy Family History Mother Cancer CAD (coronary artery disease) Cardiomyopathy Grandmother Cardiomyopathy Diabetes Other Crohn disease Psoriatic arthritis Social History Smoking and tobacco status: never smoked Alcohol intake: never History of recent travel: No Physical Exam Const: COMMON NORMALS: alert Neck/C-Spine: COMMON NORMALS: full ROM Resp: COMMON NORMALS: normal respiratory effort Cardio: COMMON NORMALS: regular rate RATE: regular rate Extremity: LEFT LOWER EXTREMITY: Yes lower leg (No significant swelling, ecchymosis, or deformity.) Left lower leg: Yes inspection, Yes palpation and Yes neurovascular exam Neuro: SENSORIUM/ORIENTATION: Yes alert Skin: COMMON NORMALS: no rashes or lesions noted GENERAL SKIN EXAM: no rashes or lesions noted Course Vital Signs: Vital signs: Vital Signs Temperature 98.3 F 05/07/22 19:03 Pulse Rate 90 05/07/22 19:03 Respiratory Rate 18 07/21/22 23:52 Blood Pressure 154/96 05/07/22 19:03 Pulse Oximetry 95 05/07/22 19:03 MDM - Extremity (Nontraumatic) Medical Decision Making 46-year-old female comes in today for injuring her right lower extremity when she stepped off a curb. Patient reported she felt a pop in the leg and since then had increasing pain. Patient been evaluated last night for some swelling and tenderness to the stable leg in which we did a ultrasound for DVT and an x- ray of the knee. Both those imagings were negative. Today the exam indicated no significant abnormalities. Differential diagnosis includes fracture, contusion, sprain. X-ray did not note any acute fracture. Reviewed exam with patient with recommendations for treatment follow-up. We will request case management to help patient with follow-up with orthopedics due to her persistent pain for the last 6 weeks to the extremity. Lab Data Radiology Impressions Tibia/Fibula X-Ray 05/07/22 22:18 IMPRESSION: No acute findings. Discharge Plan Discharge Patient Disposition: Home Clinical Impression: Injury of left lower extremity Qualifiers: Encounter type: initial encounter Qualified Code(s): S89.92XA - Unspecified injury of left lower leg, initial encounter Condition: Stable Prescriptions: No Action pantoprazole 40 mg tablet,delayed release (DR/EC) See Rx Instructions PO DAILY Qty: 90 1RF Rx Instructions: take in AM 30 minutes before meal PO daily; prednisone 10 mg tablet 10 mg PO DAILY Qty: 90 1RF prednisone 20 mg tablet See Rx Instructions PO .COMPLEX PRN (Reason: joint pain flare) Qty: 30 1RF Rx Instructions: take 1 or 2 tab daily for 5-7 days as needed for arthritis flare PO PRN; methotrexate sodium 2.5 mg tablet See Rx Instructions PO .Q7days Qty: 30 3RF Rx Instructions: take 6 tabs on same day once a week/Wednesday PO .Q7days; folic acid 1 mg tablet 1 mg PO DAILY Qty: 90 3RF tumeric and luis enrique PO 0RF pilocarpine HCl 5 mg tablet 5 mg PO TID Qty: 90 3RF gabapentin 100 mg capsule 100 mg PO TID PRN0RF fexofenadine [Felicitas Allergy] 180 mg tablet 180 mg PO DAILY 0RF ondansetron HCl 8 mg tablet 8 mg PO Q8H PRN (Reason: nausea and vomiting) Qty: 30 1RF elderberry fruit-honey 1 tab PO DAILY PRN0RF hydroxyzine HCl 25 mg tablet 25 mg PO TID PRN (Reason: Anxiety) 0RF hydrocodone-acetaminophen 5-325 mg tablet 1 tab PO Q6H PRN (Reason: pain) Qty: 14 0RF Discharge Orders: Discharge ED (Routine); Ordered 05/07/22 Ordered By: Arley Lewis Referrals: Sade Rudolph NP [Primary Care Provider] - Discharge Diet: Usual diet Discharge Activity: Increase activity as tolerated Patient Instructions: Musculoskeletal Pain (ED) Activity Restrictions/Additional Instructions: Tenuous routine care. Case management will contact you regarding follow-up with orthopedics for further evaluation. Return to ER for new concerns. Follow-up with primary care as needed. 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
--- NOTE | 2022-05-07 22:18 | XRR_ITS ---
PROCEDURE INFORMATION: Exam: XR Left Tibia and Fibula Exam date and time: 05/07/2022 10:29 PM Age: 46 years old Clinical indication: Injury or trauma; Fall; Blunt trauma; Lower leg; Left TECHNIQUE: Imaging protocol: Radiologic exam of the Left tibia and fibula. Views: 2 views. COMPARISON: CR XR foot LT min 3V* [id number] 07/14/2021 4:21 PM FINDINGS: Bones/joints: Normal. Soft tissues: Normal. XR/XR tibia fibula LT 2V [id number] IMPRESSION: No acute findings.
[2022-05-07] MEDS: HYDROcodone-acetaminophen 7.5-325 mg Tablet 1 TAB PO (22:28)
[2022-05-07] MEDS: ketorolac 60 mg/2 mL INJ IM (22:29)
[2022-05-07 23:52] VITALS: RESP 18
--- NOTE | 2022-05-08 09:54 | DCPLANNER ---
Addendum entered by Rosalina Andersen 06/09/22 12:56: Patient had a follow up appointment scheduled with ortho - patient did attend appointment. Addendum entered by Rosalina Andersen 05/13/22 12:57: Patient has a follow up appointment scheduled for Thursday, June 02, 2022 at 9:[address] Stewart at ortho. Clinic will call patient with appointment information. Original Note: restaurant area manager had message to schedule a follow up appointment for patient with ortho. restaurant area manager sent patients information to the front office staff at ortho. Patients information will be printed and reviewed. Clinic will call patient with appointment information.
== END 2022-05-07 23:53 | disposition home or self-care (01) ==
PROVIDERS: Emergency Provider Nurse Practitioner Family; PCP Nurse Practitioner Family
DX: S89.92XA Unspecified injury of left lower leg, initial encounter (principal); X58.XXXA Exposure to other specified factors, initial encounter
CPT/HCPCS: 73590; 96372; 99284; J1885

== ENCOUNTER → 2022-06-02 09:10 | Outpatient (BNVA) | payer MEDICARE, MEDICAID, SELFPAY | PROVIDERS: PCP Nurse Practitioner Family; Referring Provider Nurse Practitioner Family; Visit Provider Orthopaedic Surgery | DX: M17.0 Bilateral primary osteoarthritis of knee (principal); M25.561 Pain in right knee; M25.562 Pain in left knee | CPT/HCPCS: 73560; 73565; 99204 ==

== ENCOUNTER 2022-06-02 09:57 | Outpatient (CLI) | payer MEDICARE, MEDICAID, SELFPAY ==
[2022-06-02 10:35] LABS: Basophils % 0.2 %; Eosinophils # 0.2 10^3/uL (0.0-0.8); Eosinophils % 1.3 %; Hematocrit 44.1 % (37.0-47.0); Hemoglobin 13.5 g/dL (11.5-15.3); Lymphocytes % 14.5 %; Mean Corpuscular HGB Conc 30.6 g/dL (30.0-36.0); Mean Corpuscular Hemoglobin 29.1 pg (28.0-34.0); Mean Platelet Volume 10.8 fL (7.4-10.4); Monocytes # 0.6 10^3/uL (0.2-0.9); Monocytes % 4.4 %; Neutrophils # 11.07 10^3/uL (1.8-7.7); Neutrophils % 78.9 %; Nucleated Red Blood Cells % 0 %; Platelet Count 299 10^3/cmm (130-400); Red Blood Count 4.64 10^6/uL (4.1-5.3); Red Cell Distribution Width 15.9 % (12.1-15.1)
[2022-06-02 11:02] LABS: Albumin Level 4.2 g/dL (3.5-5.2); Aspartate Amino Transferase 18 U/L (0-32); Globulin 3.2 g/dL (1.3-4.6); Total Bilirubin 0.2 mg/dL (0.15-1.2); Total Protein 7.4 g/dL (6.6-8.7)
[2022-06-02 11:16] LABS: Alanine Aminotransferase 33 U/L (0-33); Alkaline Phosphatase 99 U/L (35-105); C Reactive Protein 36.6 mg/L (0.0-4.9); Glomerular Filtration Rate 108.1 mL/min (90-130)
== END 2022-06-02 09:58 | disposition home or self-care (01) ==
LOC: LAB 10:00
PROVIDERS: PCP Nurse Practitioner Family; Visit Provider Internal Medicine Rheumatology
DX: M35.00 Sjogren syndrome, unspecified (principal); Z79.899 Other long term (current) drug therapy
CPT/HCPCS: 36415; 80076; 82565; 85025; 86140

== ENCOUNTER → 2022-07-02 14:20 | Outpatient (BNVA) | payer MEDICARE, MEDICAID, SELFPAY | PROVIDERS: PCP Nurse Practitioner Family; Visit Provider Internal Medicine Cardiovascular Disease | DX: R00.1 Bradycardia, unspecified (principal); R07.9 Chest pain, unspecified; M79.89 Other specified soft tissue disorders; R03.0 Elevated blood-pressure reading, without diagnosis of hypertension; M35.00 Sjogren syndrome, unspecified; E66.01 Morbid (severe) obesity due to excess calories; Z68.45 Body mass index [BMI] 70 or greater, adult; M79.7 Fibromyalgia; M54.16 Radiculopathy, lumbar region | CPT/HCPCS: 99214 ==

== ENCOUNTER → 2022-08-04 09:32 | Outpatient (BNVA) | payer MEDICARE, MEDICAID, SELFPAY | PROVIDERS: PCP Nurse Practitioner Family; Visit Provider Internal Medicine Rheumatology | DX: M06.041 Rheumatoid arthritis without rheumatoid factor, right hand (principal); M06.042 Rheumatoid arthritis without rheumatoid factor, left hand; Z79.899 Other long term (current) drug therapy; M35.00 Sjogren syndrome, unspecified; M79.7 Fibromyalgia; E66.01 Morbid (severe) obesity due to excess calories; Z68.45 Body mass index [BMI] 70 or greater, adult | CPT/HCPCS: 99214 ==

== ENCOUNTER 2022-09-04 08:56 | Outpatient (CLI) | payer MEDICARE, MEDICAID, SELFPAY ==
[2022-09-04 09:25] LABS: Basophils # 0.1 10^3/uL (0.0-0.1); Basophils % 0.4 %; Eosinophils # 0.1 10^3/uL (0.0-0.8); Eosinophils % 0.8 %; Hematocrit 47.5 % (37.0-47.0); Hemoglobin 15.1 g/dL (11.5-15.3); Lymphocytes # 2.1 10^3/uL (0.8-4.8); Lymphocytes % 13.2 %; Mean Corpuscular HGB Conc 31.8 g/dL (30.0-36.0); Mean Corpuscular Hemoglobin 30.7 pg (28.0-34.0); Mean Corpuscular Volume 96.5 fl (81-99); Mean Platelet Volume 11.6 fL (7.4-10.4); Monocytes # 0.8 10^3/uL (0.2-0.9); Monocytes % 4.8 %; Neutrophils # 12.46 10^3/uL (1.8-7.7); Neutrophils % 80.1 %; Nucleated Red Blood Cells % 0 %; Platelet Count 246 10^3/cmm (130-400); Red Blood Count 4.92 10^6/uL (4.1-5.3); Red Cell Distribution Width 14.6 % (12.1-15.1); White Blood Count 15.6 10^3/uL (4.0-10.0)
[2022-09-04 09:39] LABS: Alanine Aminotransferase 35 U/L (0-33); Albumin Level 3.9 g/dL (3.5-5.2); Alkaline Phosphatase 112 U/L (35-105); Aspartate Amino Transferase 15 U/L (0-32); Globulin 3.4 g/dL (1.3-4.6); Glomerular Filtration Rate 67.7 mL/min (90-130); Total Bilirubin 0.2 mg/dL (0.15-1.2); Total Protein 7.3 g/dL (6.6-8.7)
== END 2022-09-04 08:57 | disposition home or self-care (01) ==
LOC: LAB 08:57
PROVIDERS: Internal Medicine Rheumatology; PCP Nurse Practitioner Family; Visit Provider Internal Medicine Cardiovascular Disease
DX: M19.90 Unspecified osteoarthritis, unspecified site (principal); Z79.899 Other long term (current) drug therapy
CPT/HCPCS: 36415; 80076; 82565; 85025; 86140

== ENCOUNTER → 2022-10-20 10:07 | Outpatient (BNVA) | payer MEDICARE, MEDICAID, SELFPAY | PROVIDERS: PCP Nurse Practitioner Family; Visit Provider Internal Medicine Rheumatology | DX: M06.041 Rheumatoid arthritis without rheumatoid factor, right hand (principal); Z79.899 Other long term (current) drug therapy; M06.042 Rheumatoid arthritis without rheumatoid factor, left hand; M35.00 Sjogren syndrome, unspecified; M79.7 Fibromyalgia; M54.16 Radiculopathy, lumbar region; E66.01 Morbid (severe) obesity due to excess calories; Z68.45 Body mass index [BMI] 70 or greater, adult | CPT/HCPCS: 99214 ==

== ENCOUNTER 2022-10-29 08:34 | Outpatient (RCR) | payer MEDICARE, MEDICAID, SELFPAY | END 2022-11-17 23:59 | disposition home or self-care (01) | LOC: SPT 08:34 | PROVIDERS: PCP Nurse Practitioner Family; Visit Provider Nurse Practitioner Family | DX: R26.9 Unspecified abnormalities of gait and mobility (principal) | CPT/HCPCS: 97110; 97161 ==

== ENCOUNTER → 2023-01-19 12:49 | Outpatient (BNVA) | payer MEDICARE, MEDICAID, SELFPAY | PROVIDERS: PCP Nurse Practitioner Family; Visit Provider Nurse Practitioner Family | DX: Z87.898 Personal history of other specified conditions (principal); R00.2 Palpitations | CPT/HCPCS: 99213 ==

== ENCOUNTER → 2023-02-17 14:20 | Outpatient (BNVA) | payer MEDICARE, MEDICAID, SELFPAY | PROVIDERS: PCP Nurse Practitioner Family; Visit Provider Internal Medicine Rheumatology | DX: M06.041 Rheumatoid arthritis without rheumatoid factor, right hand (principal); M06.042 Rheumatoid arthritis without rheumatoid factor, left hand; M35.00 Sjogren syndrome, unspecified; Z79.899 Other long term (current) drug therapy; M79.7 Fibromyalgia; M54.16 Radiculopathy, lumbar region | CPT/HCPCS: 99214 ==

== ENCOUNTER 2023-02-18 08:48 | Outpatient (CLI) | payer MEDICARE, MEDICAID, SELFPAY ==
[2023-02-18 09:33] LABS: Basophils % 0.2 %; Eosinophils # 0.1 10^3/uL (0.0-0.8); Eosinophils % 0.6 %; Hematocrit 47.9 % (37.0-47.0); Hemoglobin 15.2 g/dL (11.5-15.3); Lymphocytes # 2.9 10^3/uL (0.8-4.8); Lymphocytes % 15.4 %; Mean Corpuscular HGB Conc 31.7 g/dL (30.0-36.0); Mean Corpuscular Hemoglobin 29.5 pg (28.0-34.0); Mean Platelet Volume 11.5 fL (7.4-10.4); Monocytes % 5.1 %; Neutrophils # 14.53 10^3/uL (1.8-7.7); Nucleated Red Blood Cells % 0 %; Platelet Count 227 10^3/cmm (130-400); Red Blood Count 5.15 10^6/uL (4.1-5.3); White Blood Count 18.6 10^3/uL (4.0-10.0)
[2023-02-18 09:57] LABS: Alanine Aminotransferase 21 U/L (0-33); Alkaline Phosphatase 84 U/L (35-105); Aspartate Amino Transferase 10 U/L (0-32); C Reactive Protein 15.5 mg/L (0.0-4.9); Globulin 2.5 g/dL (1.3-4.6); Glomerular Filtration Rate 90.1 mL/min (90-130); Total Bilirubin 0.2 mg/dL (0.15-1.2); Total Protein 6.5 g/dL (6.6-8.7)
== END 2023-02-18 08:49 | disposition home or self-care (01) ==
LOC: LAB 08:53
PROVIDERS: PCP Nurse Practitioner Family; Visit Provider Internal Medicine Rheumatology
DX: M06.041 Rheumatoid arthritis without rheumatoid factor, right hand (principal); M06.042 Rheumatoid arthritis without rheumatoid factor, left hand; Z79.899 Other long term (current) drug therapy
CPT/HCPCS: 36415; 80076; 82565; 85025; 86140

== ENCOUNTER → 2023-03-02 13:04 | Outpatient (BNVA) | payer MEDICARE, MEDICAID, SELFPAY | PROVIDERS: PCP Nurse Practitioner Family; Referring Provider Nurse Practitioner Family; Visit Provider Dermatology | DX: D22.39 Melanocytic nevi of other parts of face (principal); D22.5 Melanocytic nevi of trunk; L82.1 Other seborrheic keratosis; L81.4 Other melanin hyperpigmentation | CPT/HCPCS: 11102; 11103; 99203 ==

== ENCOUNTER → 2023-05-07 11:05 | Outpatient (BNVA) | payer MEDICARE, MEDICAID, SELFPAY | PROVIDERS: PCP Nurse Practitioner Family; Visit Provider Nurse Practitioner Family | DX: D22.39 Melanocytic nevi of other parts of face (principal); D22.0 Melanocytic nevi of lip; L73.2 Hidradenitis suppurativa; L82.1 Other seborrheic keratosis; L81.4 Other melanin hyperpigmentation | CPT/HCPCS: 11102; 11103; 99214 ==

== ENCOUNTER 2023-05-18 15:36 | Outpatient (CLI) | payer MEDICARE, MEDICAID, SELFPAY ==
[2023-05-18 16:53] LABS: Basophils % 0.2 %; Eosinophils # 0.1 10^3/uL (0.0-0.8); Eosinophils % 0.7 %; Hematocrit 45.7 % (37.0-47.0); Lymphocytes # 3.2 10^3/uL (0.8-4.8); Lymphocytes % 23.1 %; Mean Corpuscular HGB Conc 32.8 g/dL (30.0-36.0); Mean Corpuscular Hemoglobin 30.9 pg (28.0-34.0); Mean Corpuscular Volume 94.2 fl (81-99); Mean Platelet Volume 11.7 fL (7.4-10.4); Monocytes # 0.7 10^3/uL (0.2-0.9); Monocytes % 4.8 %; Neutrophils # 9.93 10^3/uL (1.8-7.7); Neutrophils % 70.8 %; Nucleated Red Blood Cells % 0 %; Platelet Count 212 10^3/cmm (130-400); Red Blood Count 4.85 10^6/uL (4.1-5.3); Red Cell Distribution Width 13.7 % (12.1-15.1)
[2023-05-18 17:19] LABS: Alanine Aminotransferase 18 U/L (0-33); Albumin Level 3.9 g/dL (3.5-5.2); Alkaline Phosphatase 69 U/L (35-105); Aspartate Amino Transferase 9 U/L (0-32); C Reactive Protein 29.9 mg/L (0.0-4.9); Globulin 2.4 g/dL (1.3-4.6); Glomerular Filtration Rate 90.1 mL/min (90-130); Total Bilirubin 0.2 mg/dL (0.15-1.2); Total Protein 6.3 g/dL (6.6-8.7)
[2023-05-21 12:13] LABS: Quantiferon Mitogen >10.00 IU/mL; Quantiferon Nil 0.01 IU/mL; Quantiferon TB Gold NEGATIVE (NEGATIVE)
== END 2023-05-18 15:37 | disposition home or self-care (01) ==
PROVIDERS: PCP Nurse Practitioner Family; Visit Provider Internal Medicine Rheumatology
DX: M06.041 Rheumatoid arthritis without rheumatoid factor, right hand (principal); M06.042 Rheumatoid arthritis without rheumatoid factor, left hand; Z79.899 Other long term (current) drug therapy; Z11.59 Encounter for screening for other viral diseases
CPT/HCPCS: 36415; 80076; 82565; 85025; 86140; 86480

== ENCOUNTER → 2023-06-02 09:33 | Outpatient (BNVA) | payer MEDICARE, MEDICAID, SELFPAY | PROVIDERS: PCP Nurse Practitioner Family; Visit Provider Internal Medicine Rheumatology | DX: Z79.899 Other long term (current) drug therapy (principal); M06.041 Rheumatoid arthritis without rheumatoid factor, right hand; M06.042 Rheumatoid arthritis without rheumatoid factor, left hand; M35.00 Sjogren syndrome, unspecified; M79.7 Fibromyalgia; M54.16 Radiculopathy, lumbar region; E66.01 Morbid (severe) obesity due to excess calories; Z68.44 Body mass index [BMI] 60.0-69.9, adult | CPT/HCPCS: 99214 ==

== ENCOUNTER 2023-08-03 10:41 | Outpatient (CLI) | payer MEDICARE, MEDICAID, SELFPAY ==
[2023-08-03 11:17] LABS: Basophils % 0.3 %; Eosinophils # 0.1 10^3/uL (0.0-0.8); Eosinophils % 0.5 %; Lymphocytes # 2.7 10^3/uL (0.8-4.8); Lymphocytes % 17.9 %; Mean Corpuscular Hemoglobin 31.3 pg (27-33); Mean Corpuscular Volume 97.6 fl (85-98); Mean Platelet Volume 11.8 fL (7.4-10.4); Monocytes # 0.6 10^3/uL (0.2-0.9); Monocytes % 4.2 %; Neutrophils # 11.42 10^3/uL (1.8-7.7); Neutrophils % 76.5 %; Nucleated Red Blood Cells % 0 %; Platelet Count 224 10^3/cmm (157-399); Red Blood Count 4.51 10^6/uL (3.85-5.65); Red Cell Distribution Width 13.5 % (12.1-15.1); White Blood Count 14.92 10^3/uL (3.29-11.43)
[2023-08-03 11:43] LABS: Alanine Aminotransferase 15 U/L (0-33); Albumin Level 4.2 g/dL (3.5-5.2); Alkaline Phosphatase 74 U/L (35-105); Aspartate Amino Transferase 10 U/L (0-32); C Reactive Protein 15.4 mg/L (0.0-4.9); Globulin 2.6 g/dL (1.3-4.6); Glomerular Filtration Rate 90.1 mL/min (90-130); Total Bilirubin 0.2 mg/dL (0.15-1.2); Total Protein 6.8 g/dL (6.6-8.7)
== END 2023-08-03 10:42 | disposition home or self-care (01) ==
LOC: LAB 10:43
PROVIDERS: PCP Nurse Practitioner Family; Visit Provider Internal Medicine Rheumatology
DX: Z79.899 Other long term (current) drug therapy (principal); M06.041 Rheumatoid arthritis without rheumatoid factor, right hand; M06.042 Rheumatoid arthritis without rheumatoid factor, left hand
CPT/HCPCS: 36415; 80076; 82565; 85025; 86140

== ENCOUNTER → 2023-11-17 10:32 | Outpatient (BNVA) | payer OTHER, MEDICAID, SELFPAY | PROVIDERS: PCP Nurse Practitioner Family; Visit Provider Internal Medicine Rheumatology | DX: M06.041 Rheumatoid arthritis without rheumatoid factor, right hand (principal); M06.042 Rheumatoid arthritis without rheumatoid factor, left hand; Z79.899 Other long term (current) drug therapy; M54.2 Cervicalgia; M35.00 Sjogren syndrome, unspecified; M79.7 Fibromyalgia; M54.16 Radiculopathy, lumbar region | CPT/HCPCS: 72040; 99214 ==

== ENCOUNTER → 2023-11-19 08:02 | Outpatient (BNVA) | payer OTHER, MEDICAID, SELFPAY | PROVIDERS: PCP Nurse Practitioner Family; Visit Provider Nurse Practitioner Family | DX: D48.5 Neoplasm of uncertain behavior of skin (principal); L57.8 Other skin changes due to chronic exposure to nonionizing radiation; D22.4 Melanocytic nevi of scalp and neck; L81.4 Other melanin hyperpigmentation | CPT/HCPCS: 11102; 99213 ==

== ENCOUNTER 2023-12-09 09:20 | Outpatient (CLI) | payer OTHER, MEDICAID, SELFPAY ==
[2023-12-09 10:00] LABS: Basophils % 0.2 %; Lymphocytes # 1.9 10^3/uL (0.8-4.8); Lymphocytes % 14.4 %; Mean Corpuscular HGB Conc 33.3 g/dL (30-55); Mean Corpuscular Hemoglobin 30.9 pg (27-33); Mean Corpuscular Volume 92.7 fl (85-98); Mean Platelet Volume 11.4 fL (7.4-10.4); Monocytes # 0.5 10^3/uL (0.2-0.9); Monocytes % 3.9 %; Neutrophils # 10.72 10^3/uL (1.8-7.7); Nucleated Red Blood Cells % 0 %; Platelet Count 259 10^3/cmm (157-399); Red Blood Count 5.18 10^6/uL (3.85-5.65); Red Cell Distribution Width 12.5 % (12.1-15.1); White Blood Count 13.24 10^3/uL (3.29-11.43)
[2023-12-09 10:23] LABS: Alanine Aminotransferase 16 U/L (0-33); Alkaline Phosphatase 75 U/L (35-105); Anion Gap 13.5 (5-19); Aspartate Amino Transferase 10 U/L (0-32); Blood Urea Nitrogen 13 mg/dL (6-20); Carbon Dioxide 25 mmol/L (22-29); Chloride 103 mmol/L (98-107); Chol HDL Ratio 3.57 mg/dL (0.0-4.40); Cholesterol 214 mg/dL (0-200); Globulin 2.8 g/dL (1.3-4.6); Glomerular Filtration Rate 90.1 mL/min (90-130); Glucose 100 mg/dL (65-115); HDL Cholesterol 60 mg/dL (60-100); LDL Cholesterol Calculated 116 mg/dL (50-129); LDL HDL Ratio 1.93 RATIO (0.00-3.22); Osmolality Calculated 284 mOsm/kg (285-295); Potassium 4.5 mmol/L (3.5-5.1); Sodium 137 mmol/L (136-145); Thyroid Stimulating Hormone 0.55 uIU/mL (0.27-4.20); Total Bilirubin 0.2 mg/dL (0.15-1.2); Total Protein 6.8 g/dL (6.6-8.7); Triglycerides 188 mg/dL (0-150)
[2023-12-09 10:24] LABS: Estmated Average Glucose 117; Hemoglobin A1C 5.7 % (4.0-6.0)
== END 2023-12-09 09:21 | disposition home or self-care (01) ==
LOC: LAB 09:22
PROVIDERS: Absent Provider Family Medicine; PCP Nurse Practitioner Family; Visit Provider Internal Medicine Rheumatology
DX: E66.01 Morbid (severe) obesity due to excess calories (principal); M06.041 Rheumatoid arthritis without rheumatoid factor, right hand; M06.042 Rheumatoid arthritis without rheumatoid factor, left hand; Z79.899 Other long term (current) drug therapy
CPT/HCPCS: 11603; 12034; 36415; 80053; 80061; 83036; 84443; 85025; 86140

== ENCOUNTER → 2024-03-08 10:21 | Outpatient (BNVA) | payer OTHER, MEDICAID, SELFPAY | PROVIDERS: PCP Nurse Practitioner Family; Visit Provider Internal Medicine Rheumatology | DX: Z79.899 Other long term (current) drug therapy (principal); M35.00 Sjogren syndrome, unspecified; M79.7 Fibromyalgia; M06.041 Rheumatoid arthritis without rheumatoid factor, right hand; M06.042 Rheumatoid arthritis without rheumatoid factor, left hand; M54.16 Radiculopathy, lumbar region | CPT/HCPCS: 36415; 80076; 82085; 82550; 82565; 85025; 85651; 86140; 99214 ==

== ENCOUNTER → 2024-03-23 08:15 | Outpatient (BNVA) | payer OTHER, MEDICAID, SELFPAY | PROVIDERS: PCP Nurse Practitioner Family; Visit Provider Nurse Practitioner Family | DX: L23.89 Allergic contact dermatitis due to other agents (principal); L29.8 Other pruritus; L81.4 Other melanin hyperpigmentation; D22.5 Melanocytic nevi of trunk; L57.8 Other skin changes due to chronic exposure to nonionizing radiation | CPT/HCPCS: 99213 ==

== ENCOUNTER → 2024-04-17 10:16 | Outpatient (BNVA) | payer OTHER, MEDICAID, SELFPAY | PROVIDERS: PCP Nurse Practitioner Family; Visit Provider Specialist | DX: M54.16 Radiculopathy, lumbar region (principal); M79.89 Other specified soft tissue disorders; M79.669 Pain in unspecified lower leg; R29.898 Other symptoms and signs involving the musculoskeletal system; G62.89 Other specified polyneuropathies | CPT/HCPCS: 95909; 95910 ==

== ENCOUNTER 2024-05-11 12:33 | Outpatient (CLI) | payer OTHER, MEDICAID, SELFPAY ==
--- NOTE | 2024-05-11 12:38 | XR_ITS ---
WS: [id number] XR thoracic spine 3V* [id number] REASON FOR EXAM: PARESTHESIA OF SKIN FINDINGS: Straightening of the lower thoracic spine. No thoracic vertebral body abnormality. Intervertebral disc spaces are intact and relatively well preserved. Mild vertebral body osteophytosi s in the mid and lower thoracic spine. XR/XR thoracic spine 3V* [id number] IMPRESSION: Straightening of the lower thoracic spine. Minimal degenerative spondylosis.
--- NOTE | 2024-05-11 12:38 | XR_ITS ---
WS: [id number] XR cervical spine 3V* [id number] REASON FOR EXAM: PARESTHESIA OF SKIN FINDINGS: Mild reversal of the normal lordosis of the cervical spine in its midportion. No focal cervical vertebral body abnormality. Normal odontoid. There is mild narrowing of the disc space with mild osteophytosis at C5-C6. No significant listhesis. XR/XR cervical spine 3V* [id number] IMPRESSION: Degenerative spondylosis of the cervical spine as above.
== END 2024-05-11 12:34 | disposition home or self-care (01) ==
LOC: RAD 12:36
PROVIDERS: PCP Nurse Practitioner Family; Visit Provider Nurse Practitioner Family
DX: R20.2 Paresthesia of skin (principal); R20.0 Anesthesia of skin
CPT/HCPCS: 72040; 72072

== ENCOUNTER → 2024-05-18 11:33 | Outpatient (BNVA) | payer OTHER, MEDICAID, SELFPAY | PROVIDERS: PCP Nurse Practitioner Family; Visit Provider Nurse Practitioner Family | DX: L57.0 Actinic keratosis (principal); L29.8 Other pruritus; L81.4 Other melanin hyperpigmentation; D22.5 Melanocytic nevi of trunk; L57.8 Other skin changes due to chronic exposure to nonionizing radiation; L85.8 Other specified epidermal thickening; L82.0 Inflamed seborrheic keratosis; L91.8 Other hypertrophic disorders of the skin | CPT/HCPCS: 17000; 17110; 99213 ==

== ENCOUNTER → 2024-06-28 10:32 | Outpatient (BNVA) | payer OTHER, MEDICAID, SELFPAY | PROVIDERS: PCP Nurse Practitioner Family; Visit Provider Internal Medicine | DX: Z79.899 Other long term (current) drug therapy (principal); E28.2 Polycystic ovarian syndrome; E66.01 Morbid (severe) obesity due to excess calories; Z68.44 Body mass index [BMI] 60.0-69.9, adult | CPT/HCPCS: 99204 ==

== ENCOUNTER 2024-07-05 13:42 | Outpatient (CLI) | payer OTHER, MEDICAID, SELFPAY ==
[2024-07-05 14:08] LABS: Basophils % 0.3 %; Eosinophils # 0.2 10^3/uL (0.0-0.8); Eosinophils % 1.4 %; Hematocrit 49.6 % (36-47); Lymphocytes # 2.4 10^3/uL (0.8-4.8); Mean Corpuscular HGB Conc 31.9 g/dL (30-55); Mean Corpuscular Hemoglobin 30.4 pg (27-33); Mean Corpuscular Volume 95.4 fl (85-98); Mean Platelet Volume 11.5 fL (7.4-10.4); Monocytes # 0.8 10^3/uL (0.2-0.9); Monocytes % 6.2 %; Neutrophils % 71.5 %; Nucleated Red Blood Cells % 0 %; Platelet Count 237 10^3/cmm (157-399); Red Cell Distribution Width 13.6 % (12.1-15.1); White Blood Count 12.17 10^3/uL (3.29-11.43)
[2024-07-05 14:15] LABS: Erythrocyte Sedimentation Rate 13 mm/hr (0-15)
[2024-07-05 14:20] LABS: Estmated Average Glucose 123; Hemoglobin A1C 5.9 % (4.0-6.0)
[2024-07-05 14:40] LABS: Alanine Aminotransferase 27 U/L (0-33); Albumin Level 4.2 g/dL (3.5-5.2); Alkaline Phosphatase 80 U/L (35-105); Aspartate Amino Transferase 15 U/L (0-32); C Reactive Protein 48.6 mg/L (0.0-4.9); Globulin 2.9 g/dL (1.3-4.6); Glomerular Filtration Rate 76.9 mL/min (90-130); Thyroid Stimulating Hormone 3.06 uIU/mL (0.27-4.20); Total Bilirubin 0.3 mg/dL (0.15-1.2); Total Protein 7.1 g/dL (6.6-8.7)
[2024-07-05 16:07] LABS: Free T4 Free Thyroxine 1.29 ng/dL (0.82-1.77)
== END 2024-07-05 13:43 ==
LOC: LAB 13:44
PROVIDERS: Absent Provider Internal Medicine; PCP Nurse Practitioner Family; Visit Provider Internal Medicine Rheumatology
DX: M06.041 Rheumatoid arthritis without rheumatoid factor, right hand (principal); M06.042 Rheumatoid arthritis without rheumatoid factor, left hand; Z79.899 Other long term (current) drug therapy; M35.00 Sjogren syndrome, unspecified; M79.7 Fibromyalgia; M54.16 Radiculopathy, lumbar region; E66.01 Morbid (severe) obesity due to excess calories; Z68.45 Body mass index [BMI] 70 or greater, adult
CPT/HCPCS: 36415; 80076; 82565; 83036; 84439; 84443; 85025; 85651; 86140; 99214

== ENCOUNTER → 2024-07-25 10:56 | Outpatient (BNVA) | payer MEDICARE, OTHER, SELFPAY | PROVIDERS: PCP Nurse Practitioner Family; Visit Provider Obstetrics & Gynecology | DX: N93.9 Abnormal uterine and vaginal bleeding, unspecified (principal); N88.8 Other specified noninflammatory disorders of cervix uteri | CPT/HCPCS: 76830 ==

== ENCOUNTER 2024-07-27 06:34 | Day surgery (SDC) | payer OTHER, MEDICAID, SELFPAY ==
[2024-07-27] VITALS (10 sets, daily range): BP systolic 131–188; BP diastolic 83–119; PULSE 69–90; RESP 16–18; TEMP 36.2–36.6; O2SAT 93–97; BMI 65.7
--- NOTE | 2024-07-27 06:49 | W.PM.OPSFHP ---
Same Day Surgery H&P Indication for Procedure/HPI DATE OF PROCEDURE: July 27, 2024 CHIEF COMPLAINT/INDICATIONFOR SURGICAL PROCEDURE: abnormal uterine bleeding intrauterine device in place PREOP DIAGNOSIS: abnormal uterine bleeding PLANNED PROCEDURE: Operation Date: 07/27/24 08:15 Proposed Procedures p Hysteroscopy Hysteroscopy w/ Endometrial Sampling 52681, 84363, N93.9(Not Applicable) - Yeison Bach MD s Poylpectomy(Not Applicable) - Yeison Bach MD s Placement of Intrauterine Device(Not Applicable) - Yeison Bach MD 48 y.o. with intrauterine device present x 10 years with abnormal uterine bleeding now for hysteroscopy, endometrial sampling and polypectomy; removal of old intrauterine device; insertion of new intrauterine device Medications/Allergies* Home Medications Medication Instructions Recorded Confirmed Type hydroxyzine HCl 25 mg tablet 25 mg PO TID PRN Anxiety 04/08/22 07/26/24 History albuterol sulfate 90 mcg/actuation 2 puff inhalation Q6H PRN Wheezing 07/02/22 07/26/24 History aerosol inhaler tumeric and luis enrique PO PRN SWELLING' 07/02/22 07/05/24 History hydrocodone 5 mg-acetaminophen 300 1 tab PO TID PRN Pain 10/20/22 07/26/24 History mg tablet gabapentin 100 mg capsule 100 mg PO TID 01/19/23 07/26/24 History levonorgestrel 21 mcg/24 hr (up to 21 mcg intrauterine DAILY 06/20/24 07/26/24 History 8 years) 52 mg intrauterine device (Mirena) cevimeline 30 mg capsule 30 mg PO TID 07/26/24 07/26/24 History omeprazole 20 mg capsule,delayed 20 mg PO DAILY 07/26/24 07/26/24 History release ondansetron HCl 8 mg tablet 8 mg PO DAILY 07/26/24 07/26/24 History prednisone 10 mg tablet 10 mg PO DAILY 07/26/24 07/26/24 History prednisone 20 mg tablet 20 mg PO PRN PRN SWELLING 07/26/24 07/26/24 History Allergies/Adverse Reactions Allergy/AdvReac Type Severity Reaction Status Date / Time tofacitinib [From Xeljanz] Allergy Unknown Neuropathy Verified 07/27/24 06:43 upadacitinib [From Rinvoq] Allergy Unknown Mood Verified 07/27/24 06:43 changes morphine Allergy ADR-Vomitin Verified 07/27/24 06:43 g trazodone Allergy ADR-Irritab Verified 07/27/24 06:43 le duloxetine [From Cymbalta] AdvReac Severe N/V and Verified 07/27/24 06:43 migraine methotrexate AdvReac Severe N/V Verified 07/27/24 06:43 adalimumab [From Humira] AdvReac Intermediate hair loss Verified 07/27/24 06:43 Pertinent History/Comorbid Conditions* Medical History (Updated 07/01/24 @ 19:05 by Yeison Bach MD) Psychiatric care Seronegative rheumatoid arthritis of both hands Primary Sjogren's syndrome Morbid obesity High risk medication use Inflammatory arthritis Injury of gallbladder during surgery Arthritis Lupus DDD (degenerative disc disease) Joint pain Muscle pain Fibromyalgia Surgical History (Updated 04/12/22 @ 15:20 by Jolene Cooper MD) S/P cholecystectomy Status post tonsillectomy Previous section History of nephrectomy H/O LEEP Family History (Updated 06/20/24 @ 13:12 by Moni Prince LPN) Diabetes Grandmother Heart disease Mother Grandmother Grandfather Hypertension Mother Grandfather Thyroid disease Grandfather Denies family history of Colon cancer Ovarian cancer Prostate cancer Breast cancer Uterine cancer Stroke Social History Smoking and tobacco/nicotine status: current every day tobacco/nicotine user cigarettes Packs smoked per day: 1 Alcohol intake: never Pertinent Exam Findings alert, oriented x 3, clear to auscultation bilaterally and regular rate & rhythm Recommendations Surgery/Procedure today Coding Level of Care Code Acute Code for Chg Fwd Time Spent (min) 20
--- NOTE | 2024-07-27 06:51 | W.PM.OPSUD ---
Surgery/Procedure H&P Update DATE OF PROCEDURE: July 27, 2024 DATE H&P PERFORMED: 07/26/24 H&P UPDATE INFORMATION: I have reviewed H&P completed within last 30 days, I have examined patient prior to procedure and No changes to prior documentation PREOP DIAGNOSIS: abnormal uterine bleeding PLANNED PROCEDURE: Operation Date: 07/27/24 08:15 Proposed Procedures p Hysteroscopy Hysteroscopy w/ Endometrial Sampling 45230, 42722, N93.9(Not Applicable) - Yeison Bach MD s Poylpectomy(Not Applicable) - Yeison Bach MD s Placement of Intrauterine Device(Not Applicable) - Yeison Bach MD
[2024-07-27] MEDS: sodium chloride 0.9% 1,000 ML 30 ML IV (07:07)
[2024-07-27] MEDS: scopolamine 1.5 Patch 1 PATCH TRANSDERMA (07:08)
--- NOTE | 2024-07-27 07:14 | ANES.PREANE2 ---
Pre-Anesthetic Assessment Height/Weight: Height 1.68 m Weight 184.612 kg Temp Pulse Resp BP Pulse Ox O2 Del Method 97.8 F 90 18 163/115 97 Room Air 07/27/24 06:44 07/27/24 06:44 07/27/24 06:44 07/27/24 06:44 07/27/24 06:44 07/27/24 07:00 Preop Diagnosis: abnormal uterine bleeding Operation Date: 07/27/24 08:15 Proposed Procedures p Hysteroscopy Hysteroscopy w/ Endometrial Sampling 38508, 99761, N93.9(Not Applicable) - Yeison Bach MD s Poylpectomy(Not Applicable) - Yeison Bach MD s Placement of Intrauterine Device(Not Applicable) - Yeison Bach MD Familial anesthetic complications: PONV Was Beta Rosalie taken within 24 hours: N/A Was Clonidine taken within 24 hours: N/A Last intake: Intake Last Liquid Date 07/26/24 Last Liquid Time 19:00 Last Solid Date 07/26/24 Last Solid Time 19:00 Social No alcohol and No tobacco Exam alert, oriented x 3, clear to auscultation bilaterally and regular rate & rhythm Airway Mallampati: Class IV Dentition: false Pulmonary Sleep Apnea CV/HEM Palpitations Metabolic Morbid Obesity [place] [facility] [place] Fibromyalgia and Rheumatoid Arthritis sjogren's syndrome - very sensitive gag reflex, coughs a lot if anything gets in her throat Anesthetic Plan ASA status: 3 Anesthesia: General Risk of > 500 ml blood loss (7ml/kg in children): No Medications/Allergies Home Medications Medication Instructions Recorded Confirmed Last Taken Type hydroxyzine HCl 25 mg tablet 25 mg PO TID PRN Anxiety 04/08/22 07/26/24 07/25/24 History albuterol sulfate 90 mcg/actuation 2 puff inhalation Q6H PRN Wheezing 07/02/22 07/26/24 07/26/24 History aerosol inhaler tumeric and luis enrique PO PRN SWELLING' 07/02/22 07/05/24 Unknown History hydrocodone 5 mg-acetaminophen 300 1 tab PO TID PRN Pain 10/20/22 07/26/24 07/26/24 History mg tablet gabapentin 100 mg capsule 100 mg PO TID 01/19/23 07/26/24 Unknown History levonorgestrel 21 mcg/24 hr (up to 21 mcg intrauterine DAILY 06/20/24 07/26/24 Unknown History 8 years) 52 mg intrauterine device (Mirena) oxybutynin chloride 10 mg 10 mg PO DAILY #30 tabs 06/20/24 07/26/24 07/26/24 Rx tablet,extended release 24 hr atomoxetine 40 mg capsule 40 mg PO BID 30 days #60 caps 07/10/24 07/26/24 07/26/24 Rx exenatide 10 mcg/dose(250 10 mcg (0.04 mL) SUBCUT BID #2.4 mL 07/22/24 07/26/24 Unknown Rx mcg/mL)2.4 mL subcutaneous pen injector ([employer]) exenatide 5 mcg/dose (250 5 mcg (0.02 mL) SUBCUT BID #1.2 mL 07/22/24 07/26/24 Unknown Rx mcg/mL)1.2 mL subcutaneous pen injector ([employer]) abatacept 125 mg/mL subcutaneous 125 mg SUBCUT Q7D #4 mL 07/24/24 07/26/24 Unknown Rx auto-injector ([employer]) cevimeline 30 mg capsule 30 mg PO TID 07/26/24 07/26/24 07/26/24 History omeprazole 20 mg capsule,delayed 20 mg PO DAILY 07/26/24 07/26/24 Unknown History release ondansetron HCl 8 mg tablet 8 mg PO DAILY 07/26/24 07/26/24 07/26/24 History prednisone 10 mg tablet 10 mg PO DAILY 07/26/24 07/26/24 07/26/24 History prednisone 20 mg tablet 20 mg PO PRN PRN SWELLING 07/26/24 07/26/24 Unknown History Allergies Allergy/AdvReac Type Severity Reaction Status Date / Time tofacitinib [From Xeljanz] Allergy Unknown Neuropathy Verified 07/27/24 06:43 upadacitinib [From Rinvoq] Allergy Unknown Mood Verified 07/27/24 06:43 changes morphine Allergy ADR-Vomitin Verified 07/27/24 06:43 g trazodone Allergy ADR-Irritab Verified 07/27/24 06:43 le duloxetine [From Cymbalta] AdvReac Severe N/V and Verified 07/27/24 06:43 migraine methotrexate AdvReac Severe N/V Verified 07/27/24 06:43 adalimumab [From Humira] AdvReac Intermediate hair loss Verified 07/27/24 06:43 Current Medications Generic Name Dose Route Start Last Admin Trade Name Sanju PRN Reason Stop Dose Admin Sodium Chloride 1,000 mls @ 30 mls/hr 07/27/24 06:45 07/27/24 07:07 Sodium Chloride 0.9% IV 07/28/24 06:44 30 mls/hr .Q24H TRAVIS Administration PFSH Anesthesia Medical History Psychiatric care Seronegative rheumatoid arthritis of both hands Primary Sjogren's syndrome Morbid obesity High risk medication use Inflammatory arthritis Injury of gallbladder during surgery Arthritis Lupus DDD (degenerative disc disease) Joint pain Muscle pain Fibromyalgia Surgical History S/P cholecystectomy Status post tonsillectomy Previous section History of nephrectomy H/O LEEP Family History Mother Heart disease Hypertension Grandmother Diabetes Heart disease Grandfather Heart disease Hypertension Thyroid disease Denies family history of Colon cancer Ovarian cancer Prostate cancer Breast cancer Uterine cancer Stroke Social History (Updated 07/05/24 @ 13:12 by Judith Garcia LPN) Smoking and tobacco/nicotine status: current every day tobacco/nicotine user cigarettes Packs smoked per day: 1 Alcohol intake: never Data Anesthesia Cardiac Studies: Cardiac Event Monitor 01/15/22
[2024-07-27 07:22] LABS: HCG, Serum Qual Negative (Negative)
--- NOTE | 2024-07-27 08:06 | SUR.OPER ---
iud placed, mirena [id number] exp 09/16/26
[2024-07-27] MEDS: metoprolol tartrate 1 mg/1 mL SDV 5 mL 5 MG (08:39)
[2024-07-27] MEDS: fentaNYL 50 mcg/mL INJ 2mL IVP (08:41)
--- NOTE | 2024-07-27 09:10 | PM.OP ---
Operative Report Date of procedure: July 27, 2024 Pre-op diagnosis: abnormal uterine bleeding removal of old intrauterine device insertion of new mirena intrauterine device Post-op diagnosis: same Post-op findings: cervix high up in vaginal canal old intrauterine device string barely visible old intrauterine device removed complete and intact uterus sounded to [address] hysteroscope due to position of cervix small amount of endometrial tissue, sent to pathology Procedure done: pap smear removal of old intrauterine device curettage of uterus insertion of new mirena intrauterine device Implants: mirena intrauterine device Specimens removed/disposition: endometrial curettings pap smear Surgeon: Yeison Bach MD Estimated blood loss (mL): 0 Complications: none Findings: cervix high up in vaginal canal old intrauterine device string barely visible old intrauterine device removed complete and intact uterus sounded to [address] hysteroscope due to position of cervix small amount of endometrial tissue, sent to pathology Brief History: 48 y.o. with h/o mirena IUD in placed for ten years began to have heavy irregular bleeding six months ago wants new mirena IUD Procedure: Informed consent signed. Patient was taken to the operating room. Anesthesia was induced. Patient was placed in dorsolithotomy position, prepped and draped for hysteroscopy. A bivalve speculum was placed in the vagina. The cervix was visible high up in vaginal canal. The old intrauterine device string was barely visible, grasped with ring forceps, and removed complete and intact. The old intrauterine device was discarded. Pap smear was done. Hysteroscopy was not able to be performed due to high position of cervix. The anterior lip of the cervix was grasped with a sharp-toothed tenaculum. The cervix was serially dilated with Hegar dilators. The uterus was sounded to 8 cm. Endometrial curettage was done with a sharp curette. Endometrial tissue was sent to pathology. A new mirena intrauterine device was inserted into the uterine cavity and deployed. A 5 cm string was left at the cervical os. The sharp-toothed tenaculum was removed. There was no bleeding from the endometrial cavity or cervix. The patient was then placed supine and awakened and taken to the PACU. Postop condition: stable EBL: none Sponge and instruments counts were normal x 2 Complications: none
--- NOTE | 2024-07-27 10:10 | ANE.PACU2 ---
Inpatient post-anesthesia follow up: Airway intact: Yes Vital signs: Temperature 97.2 F Pulse Rate 69 Respiratory Rate 18 Blood Pressure 148/93 Pulse Oximetry 95 Oxygen Delivery Me thod Room Air Oxygen Flow Rate Fraction of Inspir ed Oxygen Hydration adequate: Yes Nausea and vomiting: No Pain level: 1 Mental status: Baseline
[2024-08-01 11:39] LABS: Lmp: NONE GIVEN; Prev. Pap: NONE GIVEN; Source: Cervix
== END 2024-07-27 10:13 | disposition home or self-care (01) ==
PROVIDERS: Anesthesiology; PCP Nurse Practitioner Family; Visit Provider Obstetrics & Gynecology
PROC: (CPT 58300; 2024-07-27 08:15)
PROC: (CPT 58120; 2024-07-27 08:15)
DX: N93.9 Abnormal uterine and vaginal bleeding, unspecified (principal); Z30.432 Encounter for removal of intrauterine contraceptive device; E66.01 Morbid (severe) obesity due to excess calories; Z68.44 Body mass index [BMI] 60.0-69.9, adult; M79.7 Fibromyalgia; F17.210 Nicotine dependence, cigarettes, uncomplicated; G47.30 Sleep apnea, unspecified; M06.9 Rheumatoid arthritis, unspecified; E28.2 Polycystic ovarian syndrome
CPT/HCPCS: 58120; 58300; 36415; 84703; 87624; 88305; J0330; J1100; J1200; J2250; J2405; J2704; J3010; J3490; J7030

== ENCOUNTER → 2024-09-27 10:52 | Outpatient (BNVA) | payer MEDICARE, MEDICAID, SELFPAY | PROVIDERS: PCP Nurse Practitioner Family; Visit Provider Internal Medicine | DX: R11.2 Nausea with vomiting, unspecified (principal); E28.2 Polycystic ovarian syndrome; E66.01 Morbid (severe) obesity due to excess calories; R03.0 Elevated blood-pressure reading, without diagnosis of hypertension; K30 Functional dyspepsia; Z68.44 Body mass index [BMI] 60.0-69.9, adult | CPT/HCPCS: 99214 ==

== ENCOUNTER → 2024-11-07 08:53 | Outpatient (BNVA) | payer MEDICARE, MEDICAID, SELFPAY | PROVIDERS: PCP Nurse Practitioner Family; Referring Provider Nurse Practitioner Family; Visit Provider Psychiatry & Neurology Neurology | DX: M25.522 Pain in left elbow (principal) | CPT/HCPCS: 95911 ==

== ENCOUNTER → 2025-01-08 10:23 | Outpatient (BNVA) | payer MEDICARE, MEDICAID, SELFPAY | PROVIDERS: PCP Nurse Practitioner Family; Visit Provider Nurse Practitioner Family | DX: A63.0 Anogenital (venereal) warts (principal); D22.39 Melanocytic nevi of other parts of face; Z08 Encounter for follow-up examination after completed treatment for malignant neoplasm; Z85.828 Personal history of other malignant neoplasm of skin | CPT/HCPCS: 99213 ==

== ENCOUNTER 2025-01-12 13:11 | Outpatient (CLI) | payer MEDICARE, MEDICAID, SELFPAY ==
[2025-01-12 13:30] LABS: Basophils % 0.3 %; Eosinophils # 0.1 10^3/uL (0.0-0.8); Eosinophils % 0.5 %; Lymphocytes # 1.6 10^3/uL (0.8-4.8); Lymphocytes % 12.8 %; Mean Corpuscular HGB Conc 32.2 g/dL (30-55); Mean Corpuscular Hemoglobin 29.8 pg (27-33); Mean Corpuscular Volume 92.7 fl (85-98); Mean Platelet Volume 11.3 fL (7.4-10.4); Monocytes # 0.5 10^3/uL (0.2-0.9); Neutrophils # 10.17 10^3/uL (1.8-7.7); Neutrophils % 81.9 %; Nucleated Red Blood Cells % 0 %; Platelet Count 218 10^3/cmm (157-399); Red Blood Count 4.96 10^6/uL (3.85-5.65); Red Cell Distribution Width 14.4 % (12.1-15.1); White Blood Count 12.42 10^3/uL (3.29-11.43)
[2025-01-12 13:34] LABS: Erythrocyte Sedimentation Rate 14 mm/hr (0-15)
[2025-01-12 13:50] LABS: Alanine Aminotransferase 14 U/L (0-33); Albumin Level 3.9 g/dL (3.5-5.2); Alkaline Phosphatase 74 U/L (35-105); Aspartate Amino Transferase 10 U/L (0-32); C Reactive Protein 22.8 mg/L (0.0-4.9); Globulin 2.6 g/dL (1.3-4.6); Glomerular Filtration Rate 106.7 mL/min (90-130); Total Bilirubin 0.2 mg/dL (0.15-1.2); Total Protein 6.5 g/dL (6.6-8.7); Uric Acid 5.1 mg/dL (2.4-5.7)
== END 2025-01-12 13:12 | disposition home or self-care (01) ==
LOC: LAB 13:12
PROVIDERS: PCP Nurse Practitioner Family; Visit Provider Internal Medicine Rheumatology
DX: Z79.899 Other long term (current) drug therapy (principal); M35.00 Sjogren syndrome, unspecified; M06.041 Rheumatoid arthritis without rheumatoid factor, right hand; M06.042 Rheumatoid arthritis without rheumatoid factor, left hand
CPT/HCPCS: 80076; 82565; 84550; 85025; 85651; 86140

== ENCOUNTER 2025-01-16 08:03 | Outpatient (CLI) | payer MEDICARE, MEDICAID, SELFPAY ==
--- NOTE | 2025-01-16 08:26 | NM_ITS ---
WS: [id number] NUCLEAR MEDICINE GASTRIC STUDY CLINICAL INFORMATION: NAUSEA,VOMITING TECHNIQUE: Following oral ingestion of cooked egg mixed with mCi technetium 99m sulfur colloid, anterior images of the stomach were obtained over the course of 90 minutes. Activity curve was performed over the course of 90 minutes with linear regression analysis. COMPARISON: None. FINDINGS: Ingestion of cooked egg mixture T1 half emptying 87.7 minutes within normal limits. 52% emptying at 88 minutes 38% emptying at 60 minutes NM/[place] [address] IMPRESSION: Normal gastric emptying *Normal median T1 half 90 minutes for solid egg meal (45-110 minutes). Delayed gastric retention is defined as 90% retained at 1 hour, 60% at 2 hour s, 30% at 3 hours, and 10% at 4 hours (normal percent gastric retention is 37-9 0% at 1 hour, 30-60% at 2 hours, and 0-10% at 4 hours).
== END 2025-01-16 08:04 | disposition home or self-care (01) ==
PROVIDERS: PCP Nurse Practitioner Family; Visit Provider Internal Medicine
DX: R11.2 Nausea with vomiting, unspecified (principal)
CPT/HCPCS: 78264; A9541

== ENCOUNTER → 2025-02-05 12:59 | Outpatient (BNVA) | payer MEDICARE, SELFPAY | PROVIDERS: PCP Nurse Practitioner Family; Visit Provider Internal Medicine Rheumatology | DX: M06.041 Rheumatoid arthritis without rheumatoid factor, right hand (principal); M06.042 Rheumatoid arthritis without rheumatoid factor, left hand; M35.00 Sjogren syndrome, unspecified; M79.7 Fibromyalgia; Z79.899 Other long term (current) drug therapy; M54.16 Radiculopathy, lumbar region | CPT/HCPCS: 99214 ==

== ENCOUNTER → 2025-02-09 07:50 | Outpatient (BNVA) | payer MEDICARE, MEDICAID, SELFPAY | PROVIDERS: PCP Nurse Practitioner Family; Visit Provider Internal Medicine | DX: E28.2 Polycystic ovarian syndrome (principal); E66.01 Morbid (severe) obesity due to excess calories; R03.0 Elevated blood-pressure reading, without diagnosis of hypertension; K30 Functional dyspepsia; R10.9 Unspecified abdominal pain | CPT/HCPCS: 99214 ==

== ENCOUNTER → 2025-02-14 13:49 | Outpatient (BNVA) | payer MEDICARE, MEDICAID, SELFPAY | PROVIDERS: PCP Nurse Practitioner Family; Visit Provider Surgery | DX: K30 Functional dyspepsia (principal); R10.9 Unspecified abdominal pain | CPT/HCPCS: 99204 ==

== ENCOUNTER 2025-02-22 07:14 | Day surgery (SDC) | payer MEDICARE, MEDICAID, SELFPAY ==
[2025-02-22 07:25] VITALS: PULSE 76; RESP 20; TEMP 36.1; O2SAT 98; BMI 51.6
--- NOTE | 2025-02-22 07:38 | W.PM.OPSUD ---
Surgery/Procedure H&P Update DATE OF PROCEDURE: February 22, 2025 DATE H&P PERFORMED: 02/14/25 H&P UPDATE INFORMATION: I have reviewed H&P completed within last 30 days, I have examined patient prior to procedure, No changes to prior documentation, Changes to prior documentation as noted here and Risks and benefits of the procedure reviewed PLANNED PROCEDURE: Operation Date: 02/22/25 09:00 Proposed Procedures p EGD 99153, K30, R10.9(Not Applicable) - Jordon Durand MD
--- NOTE | 2025-02-22 07:46 | ANES.PREANE2 ---
Pre-Anesthetic Assessment Height/Weight: Height 5 ft 6 in Weight 320 lb Temp Pulse Resp Pulse Ox O2 Del Method 97.0 F L 76 20 H 98 Room Air 02/22/25 07:25 02/22/25 07:25 02/22/25 07:25 02/22/25 07:25 02/22/25 07:25 Preop Diagnosis: Recurrent vomiting/GERD Operation Date: 02/22/25 09:00 Proposed Procedures p EGD 50682, K30, R10.9(Not Applicable) - Jordon Durand MD Was Beta Rosalie taken within 24 hours: N/A Was Clonidine taken within 24 hours: N/A Last intake: Intake Last Liquid Date 02/21/25 Last Liquid Time 18:00 Last Solid Date 02/21/25 Last Solid Time 16:00 Social Tobacco and No alcohol Exam alert, oriented x 3, clear to auscultation bilaterally and regular rate & rhythm Airway Submandibular: within normal limits Cervical ROM: within normal limits Mallampati: Class III Dentition: full Comments: Comments: Large neck circumference Anesthetic Plan ASA status: 3 Anesthesia: MAC Other: No prior issues with anesthesia NPO since yesterday Patient has had recurrent vomiting and GERD symptoms for the last year History of RA, on prednisone 10 mg daily. No need for stress dose due to level of procedure and dosage of prednisone Chronic hydrocodone 10?3 25, 3 pills daily S/p nephrectomy Patient has severe anxiety and PTSD. Very anxious this morning in tears. States she cannot give a urine sample because she cannot pee. Patient has had a tubal ligation and also has an IUD. We will proceed at this time BECK, no treatment Plan for MAC anesthesia Medications/Allergies Home Medications ?Medication ?Instructions ?Recorded ?Confirmed ?Last Taken ?Type albuterol sulfate 90 mcg/actuation 2 puff inhalation Q6H PRN Wheezing 07/02/22 02/19/25 02/22/25 06:00 History aerosol inhaler tumeric and luis enrique 1 tab PO DAILY PRN SWELLING' 07/02/22 02/19/25 Unknown History hydrocodone 5 mg-acetaminophen 300 1 tab PO TID PRN Pain 10/20/22 02/19/25 02/22/25 06:00 History mg tablet gabapentin 100 mg capsule 100 mg PO TID 01/19/23 02/19/25 02/21/25 06:00 History levonorgestrel (Mirena) 21 mcg intrauterine DAILY 06/20/24 02/19/25 02/21/25 06:00 History prednisone 20 mg tablet 20 mg PO PRN PRN SWELLING 07/26/24 02/19/25 Unknown History pen needle, diabetic 31 gauge x #100 ea 08/28/24 02/14/25 Unknown Rx 316 (TechLITE Pen Needle) hydroxyzine HCl 50 mg tablet 50 mg PO TID PRN Anxiety #90 tabs 11/09/24 02/19/25 02/21/25 06:00 Rx abatacept 125 mg/mL subcutaneous 125 mg SUBCUT Q7D #4 mL 02/05/25 02/19/25 02/19/25 Rx auto-injector ([employer]ect) omeprazole 20 mg capsule,delayed 20 mg PO DAILY #90 caps 02/05/25 02/19/25 02/21/25 06:00 Rx release prednisone 10 mg tablet 10 mg PO DAILY #90 tabs 02/05/25 02/19/25 02/21/25 06:00 Rx atomoxetine 40 mg capsule 40 mg PO BID 02/19/25 02/19/25 02/21/25 06:00 History (Strattera) cevimeline 30 mg capsule (Evoxac) 30 mg PO TID 02/19/25 02/19/25 02/21/25 06:00 History ondansetron HCl 8 mg tablet 8 mg PO Q8H PRN Nausea And Vomiting 02/19/25 02/19/25 02/22/25 06:00 History oxybutynin chloride 10 mg 10 mg PO DAILY 02/19/25 02/19/25 02/21/25 06:00 History tablet,extended release 24 hr Allergies Allergy/AdvReac Type Severity Reaction Status Date / Time tofacitinib (From Xeljanz) Allergy Unknown Neuropathy Verified 02/22/25 07:26 upadacitinib (From Rinvoq) Allergy Unknown Mood Verified 02/22/25 07:26 changes morphine Allergy ADR-Vomitin Verified 02/22/25 07:26 g trazodone Allergy ADR-Irritab Verified 02/22/25 07:26 le duloxetine (From Cymbalta) AdvReac Severe N/V and Verified 02/22/25 07:26 migraine methotrexate AdvReac Severe N/V Verified 02/22/25 07:26 adalimumab (From Humira) AdvReac Intermediate hair loss Verified 02/22/25 07:26 [facility] Anesthesia Medical History Psychiatric care Seronegative rheumatoid arthritis of both hands Primary Sjogren's syndrome Morbid obesity High risk medication use Inflammatory arthritis Injury of gallbladder during surgery Arthritis Lupus DDD (degenerative disc disease) Joint pain Muscle pain Fibromyalgia Surgical History S/P cholecystectomy Status post tonsillectomy Previous section History of nephrectomy H/O LEEP Family History Mother Heart disease Hypertension Grandmother Diabetes Heart disease Grandfather Heart disease Hypertension Thyroid disease Denies family history of Colon cancer Ovarian cancer Prostate cancer Breast cancer Uterine cancer Stroke Social History (Updated 02/14/25 @ 13:[address]) Smoking and tobacco/nicotine status: current every day tobacco/nicotine user Alcohol intake: never Data Anesthesia Cardiac Studies: Cardiac Event Monitor 01/15/22
[2025-02-22] MEDS: sodium chloride 0.9% 1,000 ML 15 ML IV (07:50)
[2025-02-22 08:05] VITALS: BP 170/110
[2025-02-22 08:59] VITALS: BP 129/87; PULSE 93; RESP 21; TEMP 36.3; O2SAT 90
[2025-02-22 09:12] VITALS: BP 175/104; PULSE 80; RESP 18; O2SAT 95
--- NOTE | 2025-02-22 09:30 | ANE.PACU2 ---
Inpatient post-anesthesia follow up: Airway intact: Yes Vital signs: Temperature 97.4 F Pulse Rate 80 Respiratory Rate 18 Blood Pressure 175/104 Pulse Oximetry 95 Oxygen Delivery Me thod Room Air Oxygen Flow Rate Fraction of Inspir ed Oxygen Hydration adequate: Yes Nausea and vomiting: No Pain level: 1 Mental status: Baseline
== END 2025-02-22 09:30 | disposition home or self-care (01) ==
PROVIDERS: PCP Nurse Practitioner Family; Visit Provider Surgery
PROC: 0DJ08ZZ Inspection of Upper Intestinal Tract, Via Natural or Artificial Opening Endoscopic (ICD-10-PCS; principal; 2025-02-22 09:00)
DX: K21.00 Gastro-esophageal reflux disease with esophagitis, without bleeding (principal); G47.33 Obstructive sleep apnea (adult) (pediatric); Z90.5 Acquired absence of kidney; Z88.5 Allergy status to narcotic agent; M35.00 Sjogren syndrome, unspecified; F17.200 Nicotine dependence, unspecified, uncomplicated; Z79.891 Long term (current) use of opiate analgesic; Z79.899 Other long term (current) drug therapy
CPT/HCPCS: 43239; 88305; J2250; J2704; J3010; J7030

== ENCOUNTER → 2025-03-07 14:10 | Outpatient (BNVA) | payer MEDICARE, MEDICAID, SELFPAY | PROVIDERS: PCP Nurse Practitioner Family; Visit Provider Surgery | DX: Z09 Encounter for follow-up examination after completed treatment for conditions other than malignant neoplasm (principal) | CPT/HCPCS: 99214 ==

== ENCOUNTER 2025-03-22 05:38 | Day surgery (SDC) | payer MEDICARE, MEDICAID, SELFPAY ==
[2025-03-22] VITALS (9 sets, daily range): BP systolic 123–166; BP diastolic 87–125; PULSE 63–83; RESP 16–20; TEMP 36.1–36.5; O2SAT 94–100; BMI 56.5
--- NOTE | 2025-03-22 06:11 | P.HPUD_ITS ---
Surgery/Procedure H&P Update DATE OF PROCEDURE: March 22, 2025 DATE H&P PERFORMED: 03/07/25 H&P UPDATE INFORMATION: I have reviewed H&P completed within last 30 days, I have examined patient prior to procedure, No changes to prior documentation, H&P is in [facility] EMR on date indicated and Risks and benefits of the procedure reviewed PLANNED PROCEDURE: Operation Date: 03/22/25 07:00 Proposed Procedures p Exam Under Anesthesia 27667 45772 51561 A63.0(Not Applicable) - Jordon Durand MD s Excision Perianal Condyloma(Not Applicable) - Jordon Durand MD
[2025-03-22] MEDS: sodium chloride 0.9% 1,000 ML 30 ML IV (06:19)
--- NOTE | 2025-03-22 06:21 | ANES.PREANE2 ---
Pre-Anesthetic Assessment Height/Weight: Height 5 ft 6 in Weight 350 lb Temp Pulse Resp BP Pulse Ox O2 Del Method 97.7 F 76 18 158/118 97 Room Air 03/22/25 06:14 03/22/25 06:14 03/22/25 06:14 03/22/25 06:14 03/22/25 06:14 03/22/25 06:14 Operation Date: 03/22/25 07:00 Proposed Procedures p Exam Under Anesthesia 04661 48818 60226 A63.0(Not Applicable) - Jordon Durand MD s Excision Perianal Condyloma(Not Applicable) - Jordon Durand MD Last intake: Intake Last Liquid Date 03/21/25 Last Liquid Time 21:00 Last Solid Date 03/21/25 Last Solid Time 21:00 Anesthetic Plan ASA status: 3 Anesthesia: General Other: No prior issues with anesthesia NPO since yesterday Patient has had recurrent vomiting and GERD symptoms for the last year History of RA, on prednisone 10 mg daily. No need for stress dose due to level of procedure and dosage of prednisone Chronic hydrocodone 10?3 25, 3 pills daily S/p nephrectomy Patient has severe anxiety and PTSD. BECK, no treatment Medications/Allergies Home Medications ?Medication ?Instructions ?Recorded ?Confirmed ?Last Taken ?Type albuterol sulfate 90 mcg/actuation 2 puff inhalation Q6H PRN Wheezing 07/02/22 03/21/25 02/22/25 06:00 History aerosol inhaler hydrocodone 5 mg-acetaminophen 300 1 tab PO TID Pain 10/20/22 03/21/25 03/21/25 History mg tablet gabapentin 100 mg capsule 100 mg PO TID 01/19/23 03/21/25 03/21/25 History levonorgestrel (Mirena) 21 mcg intrauterine DAILY 06/20/24 03/21/25 02/21/25 06:00 History prednisone 20 mg tablet 20 mg PO DIRECTED PRN SWELLING 07/26/24 03/21/25 03/21/25 History pen needle, diabetic 31 gauge x #100 ea 08/28/24 03/08/25 Unknown Rx 16 (TechLITE Pen Needle) abatacept 125 mg/mL subcutaneous 125 mg SUBCUT Q7D #4 mL 02/05/25 03/21/25 03/19/25 Rx auto-injector ([employer]cia [employer]ect) prednisone 10 mg tablet 10 mg PO DAILY #90 tabs 02/05/25 03/21/25 02/21/25 06:00 Rx cevimeline 30 mg capsule (Evoxac) 30 mg PO TID 02/19/25 03/21/25 03/21/25 History oxybutynin chloride 10 mg 10 mg PO DAILY 02/19/25 03/21/25 03/21/25 History tablet,extended release 24 hr pantoprazole 40 mg tablet,delayed 40 mg PO BID #60 tabs 02/22/25 03/21/25 Unknown Rx release atomoxetine 40 mg capsule 40 mg PO BID #60 caps 03/08/25 03/21/25 03/21/25 Rx (Strattera) hydroxyzine HCl 50 mg tablet 100 mg (2 x 50 mg) PO TID PRN 03/08/25 03/21/25 03/22/25 Rx Anxiety #180 tabs meclizine 25 mg tablet 25 mg PO DAILY PRN Nausea 03/08/25 03/21/25 03/01/25 History ondansetron HCl 8 mg tablet 8 mg PO Q8H Nausea And Vomiting 03/21/25 03/21/25 03/21/25 History lidocaine 5 % topical ointment 1 applic topical TID 7 days #30 03/22/25 Unknown Rx grams polyethylene glycol 3350 17 gram 17 g PO DAILY 14 days #14 ea 03/22/25 Unknown Rx oral powder packet (Miralax) Allergies Allergy/AdvReac Type Severity Reaction Status Date / Time tofacitinib (From Xeljanz) Allergy Unknown Neuropathy Verified 03/08/25 10:48 upadacitinib (From Rinvoq) Allergy Unknown Mood Verified 03/08/25 10:48 changes morphine Allergy ADR-Vomitin Verified 03/08/25 10:48 g trazodone Allergy ADR-Irritab Verified 03/08/25 10:48 le duloxetine (From Cymbalta) AdvReac Severe N/V and Verified 03/08/25 10:48 migraine methotrexate AdvReac Severe N/V Verified 03/08/25 10:48 adalimumab (From Humira) AdvReac Intermediate hair loss Verified 03/08/25 10:48 PFS Anesthesia Medical History Psychiatric care Seronegative rheumatoid arthritis of both hands Primary Sjogren's syndrome Morbid obesity High risk medication use Inflammatory arthritis Injury of gallbladder during surgery Arthritis Lupus DDD (degenerative disc disease) Joint pain Muscle pain Fibromyalgia Surgical History S/P cholecystectomy Status post tonsillectomy Previous section History of nephrectomy H/O LEEP Family History Mother Heart disease Hypertension Grandmother Diabetes Heart disease Grandfather Heart disease Hypertension Thyroid disease Denies family history of Colon cancer Ovarian cancer Prostate cancer Breast cancer Uterine cancer Stroke Social History Smoking and tobacco/nicotine status: current every day tobacco/nicotine user Alcohol intake: never Data Anesthesia Cardiac Studies: Cardiac Event Monitor 01/15/22
[2025-03-22] MEDS: scopolamine 1 mg PATCH 1 PATCH TRANSDERMA (06:22)
[2025-03-22] MEDS: ceFAZolin 3,000 MG in sodium chloride 0.9% (plus) 100 ML 200 MG IV (07:11)
[2025-03-22] MEDS: BUPivacaine 0.25% INJ 30 mL 10 ML INJECTION (07:49)
[2025-03-22] MEDS: lidocaine-epi 1% 20 mL INJ 10 ML INJECTION (07:49)
[2025-03-22] MEDS: neomycin-poly-bacitracin oint 28 gm 1 APPLIC TOPICAL (07:51)
--- NOTE | 2025-03-22 08:19 | PM.OP ---
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 Internal hemorrhoids Post-op findings: There were multiple condyloma's of the perineum and perianal region measuring from 0.2 cm to 1.5 cm. There were internal hemorrhoids uncomplicated, no condyloma noted inside of the anal canal Procedure done: Exam under anesthesia, excision and fulguration of perineal and perianal condyloma Pathology: Perianal condyloma Surgeon: Jordon Durand MD Complications: None apparent Brief History: This is a 49-year-old female who presents to my office for perianal condyloma after discussion of all risk and benefits as documented my preop note with side to proceed to the OR for excision. Procedure: Patient was brought into the OR, she was placed in the supine position. General anesthesia was given. She was then placed in the lithotomy position. The perineum and perianal region was prepped and draped in the usual sterile fashion. A timeout was conducted. Local anesthesia was infiltrated around all the condyloma. I then proceeded to do an exam under anesthesia multiple condylomas were noted on the perianal region perineum, digital rectal examination showed evidence of only internal hemorrhoids no pathology of the anal canal was identified. I then proceeded to sharply excise the condylomas using forceps and 15 blade, there were 15 condylomas that were removed measuring from 0.3 cm to 1.5 cm. The base of the excision of all the condylomas was then fulgurated with electrocautery. The wound was washed out and triple antibiotic ointment was placed in each of the fulgurated areas. Sterile dressing was applied. At the end of the procedure all counts were correct the patient tolerated well the procedure was transferred to PACU in stable condition.
--- NOTE | 2025-03-22 09:19 | ANE.PACU2 ---
Inpatient post-anesthesia follow up: Airway intact: Yes Vital signs: Temperature 97.5 F Pulse Rate 67 Respiratory Rate 16 Blood Pressure 166/99 Pulse Oximetry 99 Oxygen Delivery Me thod Room Air Oxygen Flow Rate 10 Fraction of Inspir ed Oxygen Hydration adequate: Yes Nausea and vomiting: No Pain level: 1 Mental status: Baseline
== END 2025-03-22 09:19 | disposition home or self-care (01) ==
PROVIDERS: PCP Nurse Practitioner Family; Visit Provider Surgery
PROC: (CPT 46924; principal; 2025-03-22 07:00)
PROC: (CPT 46924; 2025-03-22 07:00)
DX: A63.0 Anogenital (venereal) warts (principal); K64.8 Other hemorrhoids; G47.33 Obstructive sleep apnea (adult) (pediatric); K21.9 Gastro-esophageal reflux disease without esophagitis; Z90.5 Acquired absence of kidney; F41.9 Anxiety disorder, unspecified; F43.10 Post-traumatic stress disorder, unspecified; E66.01 Morbid (severe) obesity due to excess calories; Z68.43 Body mass index [BMI] 50.0-59.9, adult; F17.200 Nicotine dependence, unspecified, uncomplicated
CPT/HCPCS: 46924; 88304; 88342; J0690; J1100; J1720; J2003; J2250; J2371; J2405; J2704; J3010; J3490; J7030; J9999

== ENCOUNTER → 2025-04-03 09:20 | Outpatient (BNVA) | payer MEDICARE, MEDICAID, SELFPAY | PROVIDERS: PCP Nurse Practitioner Family; Visit Provider Surgery | DX: A63.0 Anogenital (venereal) warts (principal); Z98.890 Other specified postprocedural states | CPT/HCPCS: 99024 ==

== ENCOUNTER → 2025-04-10 08:15 | Outpatient (BNVA) | payer MEDICARE, MEDICAID, SELFPAY | PROVIDERS: PCP Nurse Practitioner Family; Visit Provider Orthopaedic Surgery | DX: G56.03 Carpal tunnel syndrome, bilateral upper limbs (principal) | CPT/HCPCS: 99204 ==

== ENCOUNTER → 2025-04-17 10:07 | Outpatient (BNVA) | payer MEDICARE, MEDICAID, SELFPAY | PROVIDERS: PCP Nurse Practitioner Family; Visit Provider Surgery | DX: Z86.19 Personal history of other infectious and parasitic diseases (principal) | CPT/HCPCS: 99213 ==

== ENCOUNTER 2025-05-16 07:43 | Oncology outpatient (recurring) (ONCR) | payer MEDICARE, MEDICAID, SELFPAY ==
[2025-05-14 08:46] VITALS: BP 171/109; PULSE 91; TEMP 36.6; O2SAT 98
[2025-05-16] VITALS (8 sets, daily range): BP systolic 136–178; BP diastolic 87–139; PULSE 80–94; RESP 17–18; TEMP 36.3–36.8; O2SAT 91–98
[2025-05-16] MEDS: diphenhydrAMINE 50 mg/mL SDV 1mL 25 MG IVP (08:37)
[2025-05-16] MEDS: methylPREDNISolone sod succ 40 mg/mL INJ IVP (08:38)
[2025-05-16] MEDS: infliximab-abda 800 MG in sodium chloride 0.9% 150 ML 10 MG IV (09:18)
--- NOTE | 2025-05-16 12:20 | PC.NURSE ---
At approximately 11:48 I was alerted by Arsenio Rico RN to assist her in assessing Mrs. Tadeo's IV placed in her Right AC. The infusion was stopped. Mrs. Tadeo complained of discomfort at the IV site as well as the area around the IV. The IV would not flush and was discontinued with a 4x4 and coban compression dressing. At that time she had received an estimated 97% of her infusion that she declined receiving another IV to complete. Mrs. Alaniss blood pressure at 1227 was 174/139. Upon conversation with Mrs. Tadeo about her blood pressure reading I urged her to let me take her to the Emergency Department when she stated she had contacted a physician at [facility] and notified them of her reading where they recommended she go to the Emergency Department for evaluation as well. Mrs. Tadeo stated, I will not go to the Emergency Department right now, I have too much to do but I may go back later. She declined to stay in the suite for further evaluation and was discharged.
== END 2025-05-17 23:59 | disposition home or self-care (01) ==
PROVIDERS: PCP Nurse Practitioner Family; Visit Provider Internal Medicine Rheumatology
DX: M06.042 Rheumatoid arthritis without rheumatoid factor, left hand (principal); M06.041 Rheumatoid arthritis without rheumatoid factor, right hand; Z79.899 Other long term (current) drug therapy
CPT/HCPCS: 96375; 96413; 96415; A4222; J1200; J2919; J7050; Q5104

== ENCOUNTER 2025-05-30 07:56 | Oncology outpatient (recurring) (ONCR) | payer OTHER, MEDICAID, SELFPAY ==
[2025-05-30] VITALS (7 sets, daily range): BP systolic 127–164; BP diastolic 73–98; PULSE 81–99; RESP 16–18; TEMP 36.2–37; O2SAT 93–98
[2025-05-30] MEDS: diphenhydrAMINE 50 mg/mL SDV 1mL 25 MG IVP (08:48)
[2025-05-30] MEDS: methylPREDNISolone sod succ 40 mg/mL INJ IVP (08:51)
[2025-05-30] MEDS: infliximab-abda 800 MG in sodium chloride 0.9% 150 ML 10 MG IV (09:31)
== END 2025-06-17 23:59 | disposition home or self-care (01) ==
PROVIDERS: PCP Nurse Practitioner Family; Visit Provider Internal Medicine Rheumatology
DX: M06.042 Rheumatoid arthritis without rheumatoid factor, left hand (principal); M06.041 Rheumatoid arthritis without rheumatoid factor, right hand; Z79.899 Other long term (current) drug therapy
CPT/HCPCS: 96375; 96413; 96415; A4222; J1200; J2919; J7050; J9999; Q5104

== ENCOUNTER → 2025-06-01 09:21 | Outpatient (BNVA) | payer OTHER, MEDICAID, SELFPAY | PROVIDERS: PCP Nurse Practitioner Family; Referring Provider Nurse Practitioner Family; Visit Provider Internal Medicine Cardiovascular Disease | DX: R55 Syncope and collapse (principal); R06.02 Shortness of breath; R07.89 Other chest pain; I10 Essential (primary) hypertension; F17.200 Nicotine dependence, unspecified, uncomplicated; R07.9 Chest pain, unspecified | CPT/HCPCS: 93005; 99204; 99214 ==

== ENCOUNTER → 2025-06-14 11:27 | Outpatient (BNVA) | payer MEDICARE, SELFPAY | PROVIDERS: PCP Nurse Practitioner Family; Visit Provider Nurse Practitioner Family | DX: L72.0 Epidermal cyst (principal); D22.39 Melanocytic nevi of other parts of face; Z08 Encounter for follow-up examination after completed treatment for malignant neoplasm; Z85.828 Personal history of other malignant neoplasm of skin; L57.0 Actinic keratosis | CPT/HCPCS: 17000; 99214 ==

== ENCOUNTER → 2025-07-23 11:09 | Outpatient (BNVA) | payer OTHER, MEDICAID, SELFPAY | PROVIDERS: PCP Nurse Practitioner Family; Visit Provider Internal Medicine Rheumatology | DX: M06.041 Rheumatoid arthritis without rheumatoid factor, right hand (principal); M06.042 Rheumatoid arthritis without rheumatoid factor, left hand; M35.00 Sjogren syndrome, unspecified; Z79.899 Other long term (current) drug therapy; M79.7 Fibromyalgia; M54.16 Radiculopathy, lumbar region; E66.01 Morbid (severe) obesity due to excess calories; J04.0 Acute laryngitis | CPT/HCPCS: 36415; 80076; 82565; 85025; 85651; 86140; 99214 ==

== ENCOUNTER → 2025-08-28 10:17 | Outpatient (BNVA) | payer OTHER, MEDICAID, SELFPAY | PROVIDERS: PCP Nurse Practitioner Family; Visit Provider Internal Medicine Cardiovascular Disease | DX: R55 Syncope and collapse (principal); I10 Essential (primary) hypertension; R06.02 Shortness of breath; R00.0 Tachycardia, unspecified; F17.200 Nicotine dependence, unspecified, uncomplicated | CPT/HCPCS: 99214 ==

== ENCOUNTER 2025-09-19 09:53 | Outpatient (CLI) | payer MEDICARE, MEDICAID, SELFPAY ==
--- NOTE | 2025-09-19 09:58 | USCV_ITS ---
Shelli Tadeo Age: 49 Gender: F : 1975 Exam Date: 09/19/2025 10:25 Ordering Phys: Santana Browne MD Technologist: Exam Location: [facility] [place] Indication: tach BP: 130 / 70 HR: 68 Rhythm: Sinus Technical Quality: Adequate MEASUREMENTS (Male / Female) Normal Values 2D ECHO LV Diastolic Diameter PLAX 4.7 cm 4.2 - 5.9 / 3.9 - 5.3 cm IVS Diastolic Thickness 1.3 cm 0.6 - 1.0 / 0.6 - 0.9 cm IVS Systolic Thickness 2.2 cm LVPW Diastolic Thickness 1.2 cm 0.6 - 1.0 / 0.6 - 0.9 cm LVPW Systolic Thickness 2.1 cm LVOT Diameter 2.1 cm LV Ejection Fraction 2D Teich 63.9 % LV Ejection Fraction MOD 2C 74.1 % LV Ejection Fraction 2C AL 73.2 % LA Diameter 4.0 cm RA Systolic Volume 4C AL 58.9 ml RA Systolic Volume 4C MOD 57.6 ml Aorta at Sinotubular Diameter 3.3 cm IVC Diameter 1.8 cm M-MODE LA Ao Ratio MM 1.3 MV E Point Septal Separation 1.3 cm AV Cusp Separation MM 2.5 cm DOPPLER AV Peak Velocity 169.0 cm/s LVOT Peak Velocity 111.0 cm/s AV Area Cont Eq vti 2.7 cm squared AV Area Cont Eq pk 2.2 cm squared MV Peak Velocity 128.0 cm/s TV Peak Velocity 229.5 cm/s TR Peak Velocity 307.0 cm/s TR Peak Gradient 37.7 mmHg TV Peak E Velocity 118.0 cm/s PV Peak Velocity 117.0 cm/s FINDINGS Left Ventricle Normal left ventricular size, systolic function and no regional wall motion abnormality. Left ventricular ejection fraction is 64%. Normal left ventricular diastolic function. Mild concentric left ventricular hypertrophy. Right Ventricle Normal right ventricular size and systolic function. RVSP could not be calculated due to incomplete tricuspid regurgitation velocity profile. Right Atrium Normal right atrial size. Left Atrium Normal left atrial size. IA Septum Normal appearance of the interatrial septum. Mitral Valve Normal mitral valve structure. No mitral valve stenosis or regurgitation. Aortic Valve Normal aortic valve structure. No aortic valve stenosis or regurgitation. Tricuspid Valve Normal tricuspid valve structure. No tricuspid valve stenosis or regurgitation. Pulmonic Valve Normal pulmonic valve structure. No pulmonic valve stenosis or regurgitation. Pericardium No pericardial effusion. Aorta Normal diameter of the aortic root and ascending thoracic aorta. IVC Normal IVC diameter. CONCLUSIONS Normal left ventricular size, systolic function and ejection fraction of 64%. Mild concentric left ventricular hypertrophy Normal right ventricular size and systolic function. No significant valvular findings. Santana Browne MD, FACC (Electronically Signed) Final Date: 26 September 2025 21:21 S
== END 2025-09-19 09:54 | disposition home or self-care (01) ==
LOC: RAD 09:54
PROVIDERS: PCP Nurse Practitioner Family; Visit Provider Internal Medicine Cardiovascular Disease
DX: R00.0 Tachycardia, unspecified (principal); I51.7 Cardiomegaly
CPT/HCPCS: 93306